=== PATIENT | female | born 1950 | race Caucasian/White ===

== ENCOUNTER 2021-09-02 12:58 | Outpatient (CLI) | payer MEDICARE, BC, SELFPAY ==
--- NOTE | ~2021-09-02 | MR_ITS ---
EXAMINATION: MR knee RT wo con DATE: 09/02/2021 14:27 INDICATION: Right knee pain TECHNIQUE: Magnetic resonance imaging (MRI) of the right knee was performed without intravenous contr ast. Sequences included coronal PD-weighted FSE, coronal PD-weighted FS FSE, sagittal T2-weighted FS E, sagittal PD-weighted FS FSE and axial PD weighted fat saturated FSE. COMPARISON: None. FINDINGS: Medial compartment: Longitudinal horizontal tear extending to the inferior articular surface at the posterior horn and po sterior body of the medial meniscus. Articular cartilage is normal. Lateral compartment: Lateral meniscus is normal. Articular cartilage is normal. Patellofemoral compartment: Partial-thickness chondral fissuring without degenerative subchondral changes at the medial patellar facet. Ligaments and tendons: Anterior and posterior cruciate ligaments are normal. The medial collateral ligament and fibular kostas ateral ligament complex are normal. Small enthesophyte at the patellar insertion of the quadriceps te ndon and at the anterior tibial tubercle insertion of the patellar tendon. The extensor mechanism is otherwise normal. The visualized medial and lateral hamstring tendons as well as the iliotibial band are normal. Fluid: Physiologic amount of fluid in the joint space. No loose osteochondral bodies identified. Small Medrano 's cyst. Osseous/other: Normal marrow signal. No fracture or pathologic marrow replacing process. IMPRESSION: 1. Longitudinal horizontal medial meniscal tear. 2. Partial-thickness chondral fissuring at the medial patellar facet. 3. Small Medrano's cyst. Reviewed, dictated and finalized at location A. ECT MANAGEMENT CONSULTANT
== END 2021-09-02 12:59 | disposition home or self-care (01) ==
LOC: ANHIMG 13:03
PROVIDERS: PCP Family Medicine; Visit Provider Orthopaedic Surgery
DX: M71.21 Synovial cyst of popliteal space [Baker], right knee (principal); S83.241A Other tear of medial meniscus, current injury, right knee, initial encounter; X58.XXXA Exposure to other specified factors, initial encounter
CPT/HCPCS: 73721

== ENCOUNTER 2021-10-26 07:34 | Outpatient (CLI) | payer MEDICARE, BC, SELFPAY ==
[2021-10-26 08:47] LABS: Anion Gap 10 mmol/L (8-16); Blood Urea Nitrogen 17 mg/dL (7-17); Calcium 9.2 mg/dL (8.4-10.2); Carbon Dioxide 25 mmol/L (22-30); Chloride 105 mmol/L (98-107); Estimated Glomerular Filt Rate > 60; Glucose 196 mg/dL (65-110); Potassium 4.4 mmol/L (3.4-5.0); Sodium 140 mmol/L (137-145)
--- NOTE | 2021-10-26 09:35 | ECG_ITS ---
Measurements Intervals [place] Rate: 71 P: 3 SC: 160 QRS: 50 QRSD: 80 T: 47 QT: 363 QTc: 396 Interpretive Statements SINUS RHYTHM LOW QRS VOLTAGE IN PRECORDIAL LEADS [QRS DEFLECTION < 1.0 mV IN CHEST LEADS] BORDERLINE ECG NO PREVIOUS ECG AVAILABLE FOR COMPARISON Electronically Signed On 10-26-2021 11:34:57 CDT by Ricardo Patel M.D.
== END 2021-10-26 07:35 | disposition home or self-care (01) ==
PROVIDERS: PCP Family Medicine; Visit Provider Orthopaedic Surgery
DX: Z01.818 Encounter for other preprocedural examination (principal); E11.9 Type 2 diabetes mellitus without complications; I10 Essential (primary) hypertension
CPT/HCPCS: 36415; 80048; 93005

== ENCOUNTER 2023-10-19 10:48 | Emergency (ER) | payer MEDICARE, BC, SELFPAY ==
--- NOTE | 2023-10-19 11:00 | ED.EAR ---
HPI - Ear Problem General Chief complaint: Ear Stated complaint: Right Ear Irritation Source: patient Mode of arrival: ambulatory Limitations: no limitations History of Present Illness HPI Narrative: 72-year-old female presented for complaint of right ear irritation for about 3 days. She endorses the ear feels ?full. ? She states she was attacked by a bee which subsequently was lodged into her ear canal. She was able to use vegetable oil and tweezers to extract the be the day of the incident. Since then she denies any itching or swelling redness or warmth to the ear. She denies decrease in hearing. She endorses history of tinnitus, worse on the left, and vertigo which is improving with treatment. MD Complaint: ear pain Related Data Home Medications Medication Instructions Recorded Confirmed blood sugar diagnostic (FreeStyle 10/19/23 10/19/23 Lite Strips) glimepiride 2 mg tablet 2 mg PO DAILY 10/19/23 10/19/23 losartan 25 mg tablet 25 mg PO DAILY 10/19/23 10/19/23 meclizine 12.5 mg tablet 12.5 mg PO PRN PRN Vertigo 10/19/23 10/19/23 metformin 750 mg tablet,extended 750 mg PO BID 10/19/23 10/19/23 release 24 hr rosuvastatin 5 mg tablet 5 mg PO DAILY 10/19/23 10/19/23 sitagliptin phosphate 100 mg 100 mg PO DAILY 10/19/23 10/19/23 tablet (Januvia) ursodiol 250 mg tablet 250 mg PO BID 10/19/23 10/19/23 Allergies Allergy/AdvReac Type Severity Reaction Status Date / Time No Known Allergies Allergy Verified 10/19/23 10:50 Review of Systems Review of Systems: CONSTITUTIONAL: Denies malaise, chills, or fever. EYES: Denies visual changes, redness, or discharge. ENT: Denies rhinorrhea, congestion, sinus pain, and sore throat. Reports ear irritation CARDIOVASCULAR: Denies chest pain, palpitations, or edema. RESPIRATORY: Denies cough or dyspnea. SKIN: Denies rash or itching. MUSCULOSKELETAL: Denies myalgia. NEUROLOGIC: Denies headache. All systems reviewed & are unremarkable except as noted in HPI and below PMFSH Past Medical History Medical History (Updated 10/19/23 @ 11:26 by Lissa Srinivasan, IMMIGRATION SERVICES OFFICER) Diabetes Vertigo Comments At time of signature, agree with nursing past medical, surgical, social and family history. There is no relevant family history pertinent to the presenting complaint Exam Narrative: GENERAL: Well-appearing EYES: PERRLA, conjunctivae clear ENT: Nares clear. Mucous membranes moist. TMs pearly helms with dull light reflex bilaterally; no tragal tenderness. Right canal with abrasion at 3o'clock position, no swelling or drainage, no FB. Oropharynx not erythematous without lesions. Tonsils not enlarged and without exudate, no drooling, no hoarseness, no trismus, uvula midline. NECK: Supple. No lymphadenopathy. Soft C-collar in place. CHEST: Clear to auscultation, breath sounds equal. HEART: Regular rate and rhythm. No murmur heard. SKIN: Warm, dry, no rash. NEURO: Alert and oriented x3. PSYCH: Normal mood and affect Course Course Emergency Course: Patient is aware of diagnosis, understands and agrees to treatment plan. Anticipatory guidance given. Patient agrees to follow-up as directed and is aware of reasons to seek care at the emergency department. Portions of this record may have been created with voice recognition software Level of Care: Express Care Visit Vital Signs Vital signs: Reviewed Medical Decision Making MDM Narrative Medical decision making narrative: Discussed physical exam findings consistent with abrasion to the right canal. Rx cipro gtts. Advised supportive measures and signs/symptoms to go to the ER. Patient is appropriate for outpatient treatment and follow-up. Differential Diagnosis Differential Diagnosis: Coronavirus, strep pharyngitis, allergic rhinitis, upper respiratory tract infection, sinusitis, rhinosinusitis, nasopharyngitis, viral pharyngitis, otitis media, otitis externa, eustachian tube dysfunction, foreign body, cerumen impaction. D
[2023-10-19 11:01] VITALS: BP 112/70; PULSE 85; RESP 18; TEMP 36.7; O2SAT 100
== END 2023-10-19 11:15 | disposition home or self-care (01) ==
PROVIDERS: Emergency Provider Nurse Practitioner Family; PCP Family Medicine
DX: S00.411A Abrasion of right ear, initial encounter (principal); X58.XXXA Exposure to other specified factors, initial encounter; E11.9 Type 2 diabetes mellitus without complications
CPT/HCPCS: 99213; G0463

== ENCOUNTER 2025-04-08 13:23 | Emergency (ER) | payer MEDICARE, BC, SELFPAY ==
--- OUTSIDE RECORDS SUMMARY | 2005-02-08 10:30 | XMS_ITS | Continuity of Care Document ---
Author Organization [facility] Address [address] [place] [address] Phone Care Team Providers Care File Clerk Data Entry Name Role Phone Starr OD, Ryan Unavailable Unavailable Advance Directives Directive Yes / No Effective Date File Name No Information Encounters Encounter Description Practice Location Reason(s) For Visit Diagnoses Date Provider Providers Copied on Encounter [facility], [address], [place], [place], [id number], [place] tel:[phone] [facility] No Information Aug-0 1-200 5 Starr OD Ryan. [address] , [address], [place], [address], [place]. tel:[phone] Referring Provider: Jennifer Lees MD, [address], [place], [address]. tel:[phone] Family History Family Member Type Diagnosis Age At Onset No Information Payers Payer name Insurance type Covered libertarian ID Authorclaytona tivirgilio(s) [facility] [id number] Social History Type Description Quantity Date Captured Comments Sex Female Smoking Status No Information Chief Complaint And Reason For Visit No Information Reason For Referral Reason For Referral No Information History Of Present Illness Encounter Date Complaint History Of Prese nt Illness No Information Functional Status Date Functional Assessmen t No Information Instructions Date Instruction Additional Infor mation No Information Assessments Type Assessment Date No Information Patient Care Teams Name Effective Dates (start - stop) Status Members No Information
--- NOTE | ~2025-04-08 | XR_ITS ---
EXAMINATION: XR chest 2V, 04/08/2025 13:49 CDT HISTORY: cough x 5 days, pneumonia exposure COMPARISON: No comparisons available. Technique: 2 views obtained. Findings: The lungs are clear, no effusion. No pneumothorax. Heart is normal size. Mediastinal and hilar contours are within normal limits. Bony thorax no acute abnormality. Impression: No acute cardiopulmonary abnormality. Reviewed, dictated and finalized at location P. Impression: No acute cardiopulmonary abnormality.
[2025-04-08 13:31] VITALS: BP 148/63; PULSE 81; RESP 16; TEMP 36.4; O2SAT 100
--- OUTSIDE RECORDS SUMMARY | 2025-04-08 13:48 | XMS_ITS | Encounter Summary ---
Author Organization [facility] Address [address] [place] [address] Care Team Providers Care Childhood Development Teacher Name Role Phone Eulalia Pereira MD Primary Care Provi ursula Horacio Luis MD Unavailable [phone] Encounter Details Date Type Department Care Team (Late st Contact Info) Description 03/15/2025 Results Follow-Up [facility] Family Medicine [address] [address] Eulalia Pereira MD [address] [address] CBC/Diff Ambiguous Default, Comprehensive metabolic panel, Albumin Creatinine Ratio, Urine, Additional followed-up results: 4 Social History Tobacco Use Types Packs/Day Years Used Date Smoking Tobacco: Never Smokeless Tobacco: Never Alcohol Use Standard Drinks/Week Comments Yes 1 (1 standard drink = 0.6 oz pur e alcohol) [facility] Utilities Answer Date Recorded In the past 12 months has [employer] electric, gas, oil, or water company threatened to shut off services in your home? No 12/07/2024 Social Connection and Isolation Panel Answer Date Recorded In a typical week, how many times do you talk on the phone with family, friends, or neighbors? More than three times a week 12/07/2024 How often do you get togethe r with friends or relatives? More than three times a week 12/07/2024 How often do you attend chur ch or presybeterian services? Never 12/07/2024 Do you belong to any clubs o r organizations such as congregation groups, unions, fraternal or athletic groups, or school groups? No 12/07/2024 How often do you attend meet ings of the clubs or organizations you belong to? Never 12/07/2024 Are you , , di vorced, , never , or living with a partner? 12/07/2024 AUDIT-C Answer Date Recorded Q1: How often do you have a drink containing alcohol? Never 01/29/2025 Q2: How many drinks containi ng alcohol do you have on a typical day when you are drinking? Patient does not drink Q3: How often do you have si x or more drinks on one occasion? Never 01/29/2025 Overall Financial Resource Strain (CARDIA) Answe r Date Recorded How hard is it for you to pa y for the very basics like food, housing, medical care, and heating? Not very hard 12/07/2024 PHQ-2 Answer Date Recorded PHQ-2 Total Score (If total score is 3 or more points, staff should administer the PHQ-9) 0 01/29/2025 Hunger Vital Sign Answer Date Recorded Within the past 12 months, y ou worried that your food would run out before you got the money to buy more. Never true 12/08/19 25 Within the past 12 months, t he food you bought just didn't last and you didn't have money to get more. Never true 12/07/2024 PRAPARE - Transportation Answer Date Re corded In the past 12 months, has l ack of transportation kept you from medical appointments or from getting medications? No 11/10 In the past 12 months, has l ack of transportation kept you from meetings, work, or from getting things needed for daily living? No 12/07/2024 PHQ-9 Answer Date Recorded PHQ-9 Total Score 2 01/29/2025 Housing Stability Vital Sign Answer Rui e Recorded In the last 12 months, was t here a time when you were not able to pay the mortgage or rent on time? No 12/07/2024 In the past 12 months, how m any times have you moved where you were living? 0 12/07/2024 At any time in the past 12 m [facility], were you homeless or living in a jail (including now)? No 12/07/2024 Personal Safety Answer Date Recorded Have you ever been in or are you currently in a harmful physical or emotional relationship or is someone making you feel afraid or unsafe? Denies 12/06/2024 Comments No Sex and Gender Information Value Date Recorded Sex Assigned at Not on file Legal Sex Female 12:35 AM ANTISQUEAK APPLIER Gender Identity Not on file Sexual Orientation Not on file documented as of this encounter Plan of Treatment Not on file documented as of this encounter Visit Diagnoses Not on filedocumented in this encounter Additional Health Concerns Infection Onset Date Last Indicated Resolved Time MDR gram neg/ESBL Comment:Patients who received care at a healthcare facility outside of the [place] will be placed in Contact Precautions until infection or colonization with specific highly resistant bacteria can be ruled out. Infection Prevention will arrange screening. Please contact Infection Prevention. 06/24/2022 06/24/2022 documented as of this encounter Care Teams Childhood Development Teacher Relationship Specialty Start Date End Date Eulalia Pereira MD [address] [place] [address] PCP - General Family Medicine 09/29/18 Horacio Luis MD [address] [place] [address] Consulting Physician General Surgery 12/07/24 documented as of this encounter
--- OUTSIDE RECORDS SUMMARY | 2025-04-08 13:48 | XMS_ITS | Clinical Summary ---
Author Organization [facility] Address [address] [place] [address] Care Team Providers Care Pipe Fitter Soft Copper Name Role Phone Unavailable Primary Care Provider Unavailabl e Immunizations Immunization Administration Dates Next Due MODERNA COVID-19 (12+) MRNA, LNP-S, PF, 100 MCG/ 0.5 ML DOSE 09/17/2020,08/20/2020 Social History Tobacco Use Types Packs/Day Years Used Date Smoking Tobacco: Never Assessed Comments Unknown Sex and Gender Information Value Date Recorded Sex Assigned at Not on file Legal Sex Female 7:32 PM CDT Gender Identity Not on file Sexual Orientation Not on file Plan of Treatment Health Maintenance Due Date Last Done Comments Colorectal Cancer Screening Colonoscopy (10 Years) 1952 Hepatitis C 1970 DTaP, Tdap and Td Vaccines ( 1 - Tdap) 11/23/1971 Mammogram Screening 1992 Annual Medicare Wellness Visit 2017 Dexa Scan (General) 2017 Pneumococcal Vaccine: 50+ Years (2 of 2 - PPSV23) 06/22/2020 06/22/2019, 05/10/2015 COVID-19 Vaccine (3 - 2024-2 6 season) 2025 09/17/2020, 08/20/2020 RSV Immunization or 60+ Years (1 - 1-dose 75+ series) 11/23/2027 Zoster Vaccines Completed 04/10/2020, 06/22/2019 Meningococcal B Vaccine Aged Out No l onger eligible based on patient's age to complete this topic Meningococcal Vaccine Aged Out No mirela elizabeth eligible based on patient's age to complete this topic RSV Immunizations Under 20 Months Aged Out No longer eligible b ased on patient's age to complete this topic Insurance MEDICARE [facility]
--- OUTSIDE RECORDS SUMMARY | 2025-04-08 13:48 | XMS_ITS | Clinical Summary ---
Author Organization [facility] Address [address] [place] [address] Care Team Providers Care Environmental Department Manager Name Role Phone Jennifer Lees MD Primary Care Provider [phone] Social History Tobacco Use Types Packs/Day Years Used Date Smoking Tobacco: Never Assessed Comments Unknown Sex and Gender Information Value Date Recorded Sex Assigned at Not on file Legal Sex Female 6:12 AM BLASTING CONTRACT MINER Gender Identity Not on file Sexual Orientation Not on file Plan of Treatment Health Maintenance Due Date Last Done Comments DTAP/TDAP/TD VACCINES (1 - Tdap) 11/23/1971 COLORECTAL SCREENING 1997 Colorectal Cancer Screening 1997 FIT-DNA Q 3 years 1997 FIT/FOBT Q 1 year 1997 Flex Sig/CT Colonography Q 5 years 1997 PNEUMOCOCCAL VACCINE 50+ YEARS (1 of 1 - PCV) 11/23/19 03 ZOSTER VACCINE (1 of 2) 2002 BREAST CANCER SCREENING 05/18/2013 05/18/2012 OSTEOPOROSIS SCREENING 2017 INFLUENZA VACCINE (#1) 2025 RSV VACCINE (60+ or ) (1 - 1-dose 75+ series) 11/23/2027 Procedures Procedure Name Priority Date/Time Associated Diagnosis Comments MAMMO SCREEN BILAT W OR WO CAD Routine 05/18/2012 1:58 PM BLASTING CONTRACT MINER Other screening mammogram from Last 3 Months or Most Recently Relevant to Health Maintenance Results * MAMMO DIGITAL SCREEN BILAT (05/18/2012 1:58 PM BLASTING CONTRACT MINER) Anatomical Region Laterality Modality Breast Bilateral Mammography 05/18/2012 1:57 PM BLASTING CONTRACT MINER Addenda Addendum by Francisco Anderson MD on 05/26/2012 12:23 PM BLASTING CONTRACT MINER ADDENDUM: Outside films made available for review dated February 2005 from [facility]. FINDINGS: The parenchymal pattern of the breasts is unchanged from the previous examination including the asymmetry within the superior aspect of the right breast on the MLO projection. No concerning developing masses, microcalcifications or focal areas of architectural distortion identified. Overall assessment: BI-RADS category 1: Negative RECOMMENDATIONS: Recommend continued annual mammography. Narrative 05/22/2012 7:13 AM BLASTING CONTRACT MINER BILATERAL DIGITAL SCREENING MAMMOGRAM WITH CAD , May 18, 2012 01:57:00 PM INDICATION: Routine screening. TECHNIQUE: Standard images were obtained of both breasts on a digital system. CAD was utilized. COMPARISON: None available. BREAST COMPOSITION: Scattered fibroglandular densities. FINDINGS: There is an asymmetry within the posterior/superior aspect of the right breast immediately anterior to the pectoralis muscle, likely representing normal glandular tissue. Comparisons will be obtained to assure stability of the parenchymal pattern. No concerning microcalcifications. The contralateral breast is unremarkable, with no dominant concerning masses identified. OVERALL ASSESSMENT: BI-RADS Category 0: Incomplete. Needs prior mammograms for comparison. RECOMMENDATIONS: Recommend obtain outside studies for comparison. An addendum will be dictated when these films become available. Procedure Note Francisco Anderson MD - 05/22/2012 BILATERAL DIGITAL SCREENING MAMMOGRAM WITH CAD , May 18, 2012 01:57:00 PM INDICATION: Routine screening. TECHNIQUE: Standard images were obtained of both breasts on a digital system. CAD was utilized. COMPARISON: None available. BREAST COMPOSITION: Scattered fibroglandular densities. FINDINGS: There is an asymmetry within the posterior/superior aspect of the right breast immediately anterior to the pectoralis muscle, likely representing normal glandular tissue. Comparisons will be obtained to assure stability of the parenchymal pattern. No concerning microcalcifications. The contralateral breast is unremarkable, with no dominant concerning masses identified. OVERALL ASSESSMENT: BI-RADS Category 0: Incomplete. Needs prior mammograms for comparison. RECOMMENDATIONS: Recommend obtain outside studies for comparison. An addendum will be dictated when these films become available. Jennifer Lees MD MAMMO ORDERABLES Edited Resu lt - Final from Last 3 Months or Most Recently Relevant to Health Maintenance Insurance [facility] [employer] Care Teams Environmental Department Manager Relationship Specialty Start Date End Date Jennifer Lees MD [address] [address] PCP - General 06/27/15
--- OUTSIDE RECORDS SUMMARY | 2025-04-08 13:48 | XMS_ITS | Encounter Summary ---
Author Organization [facility] Care Team Providers Care Skip Hoist Operator Name Role Phone Eulalia Pereira MD Primary Care Provi ursula Myra Roblero CDE Unavailable Horacio Luis MD Unavailable Jordyn Lewis LPN Unavailable [phone] Encounter Details Date Type Department Care Team (Latest Contact Info) Description 01/21/2017 Orders Only [facility] CLINCONV Provider, MD Amber [address] [place] [address] Social History Tobacco Use Types Packs/Day Years Used Date Smoking Tobacco: Never Alcohol Use Standard Drinks/Week Comments No 0 (1 standard drink = 0.6 oz pur e alcohol) Comments Unknown Sex and Gender Information Value Date Recorded Sex Assigned at Not on file Legal Sex Female 12:35 AM PRODUCTION CLERKS SUPERVISOR Gender Identity Not on file Sexual Orientation Not on file documented as of this encounter Plan of Treatment Not on file documented as of this encounter Procedures Procedure Name Priority Date/Time Associated Diagnosis Comments SCAN - LABS 01/21/2017 12:00 AM CDT documented in this encounter Results * SCAN - LABS (01/21/2017 12:00 AM CDT) Narrative 01/21/2017 12:00 AM CDT Ordered by an unspecified provider. us Historical Provider Final Res ult documented in this encounter Visit Diagnoses Not on filedocumented [...] screening. Please contact Infection Prevention. 06/24/2022 06/24/2022 COVID: Suspected 06/24/2022 06/24/2022 06/24/2022 11:52 AM PRODUCTION CLERKS SUPERVISOR COVID19 06/24/2022 06/24/2022 07/04/2022 3:05 AM PRODUCTION CLERKS SUPERVISOR COVID: Recovered Comment:Added based on recent COVID infection. 07/04/2022 07/28/2022 10/02/2022 3:05 AM C DT COVID: Suspected 09/15/2023 09/15/2023 09/15/2023 5:46 AM PRODUCTION CLERKS SUPERVISOR documented as of this encounter Care Teams Skip Hoist Operator Relationship Specialty Start Date End Date Eulalia Pereira MD [address] [place] [address] PCP - General Family Medicine 09/29/18 Myra Roblero CDE [address] [place] [address] [address] [place] [address] Data Analyst Etl Developer 01/24/23 08/10/23 Horacio Luis MD [address] [place] [id number] Consulting Physician General Surgery 12/07/24 Jordyn Lewis LPN [address] [place] [address] Early Childhood Assistant 12/10/24 12/10/24 documented as of this encounter
--- OUTSIDE RECORDS SUMMARY | 2025-04-08 13:48 | XMS_ITS | Encounter Summary ---
Author Organization [facility] Address [address] [place] [address] Care Team Providers Care Installer Helper Name Role Phone Eulalia Pereira MD Primary Care Provi ursula Horacio Luis MD Unavailable [phone] Reason for Visit * Reason Onset Date Comments Referral Request 03/22/2025 Encounter Details Date Type Department Care Team (Late st Contact Info) Description 03/22/2025 Telephone [facility] Family Medicine [address] [address] Eulalia Pereira MD [address] [place] [address] Referral Request Social History Tobacco Use Types Packs/Day Years Used Date Smoking Tobacco: Never Smokeless Tobacco: Never Alcohol Use Standard Drinks/Week Comments Yes 1 (1 standard drink = 0.6 oz pur e alcohol) [facility] Utilities Answer Date Recorded In the past 12 months has [employer] electric, gas, oil, or water company threatened [...] often do you attend chur ch or cheondoism services? Never 12/07/2024 Do you belong to any clubs o r organizations such as gnosticism groups, unions, fraternal or athletic groups, or [...] any time in the past 12 m onths, were you homeless or living in a skilled nursing (including now)? No 12/07/2024 Personal Safety Answer Date Recorded Have you ever been in or are you currently in a harmful physical or emotional relationship or is someone making you feel afraid or unsafe? Denies 12/06/2024 Comments No Sex and Gender Information Value Date Recorded Sex Assigned at Not on file Legal Sex Female 12:35 AM FEED MIXER Gender Identity Not on file Sexual Orientation Not on file documented as of this encounter Miscellaneous Notes * Telephone Encounter - Chely Rodriguez - 03/25/2025 8:56 AM CDT Records were faxed from a previous message * Telephone Encounter - Tala Mathews - 03/22/2025 3:38 PM CDT Referral Provider Name: TEJAS ADAMES Specialty: Endocrinology Address: [address] [place] [address] [address] [place] [address], Zip: [place] [address] Diagnosis Code/Symptom/Reason Patient is being seen: Multinodular goiter (E04.2) Date of Appointment: none NPI#: [id number] Tax ID#: [id number] Is insurance in chart up to date? Yes-Medicare Additional Comments: none Does message need to be routed? Yes-Action Needed documented in this encounter Plan of Treatment Not on [...] documented as of this encounter Care Teams Installer Helper Relationship Specialty Start Date End Date Eulalia Pereira MD [address] [place] [address] PCP - General Family Medicine 09/29/18 Horacio Luis MD [address] [place] [address] Consulting Physician General Surgery 12/07/24 documented as of this encounter
--- OUTSIDE RECORDS SUMMARY | 2025-04-08 13:48 | XMS_ITS | Clinical Summary ---
Author Organization [address] Address [address] [place] [id number] Care Team Providers Care Director Of Curriculum And Instruction Name Role Phone Eulalia Pereira MD Primary Care Provi ursula Horacio Luis MD Unavailable Allergies Active Allergy Reactions Criticality Noted Date Comments Tray Inhibitors Cough,Dizziness Low 07/23/2020 Medications ursodioL (MERT) 250 mg tablet Take 1 tablet (250 mg total) by mouth 2 (two) times a day 3 Active meclizine (ANTIVERT) 12.5 mg tabletIndicatio ns:Vertigo TAKE 1 TABLET(12.5 MG) BY MOUTH THREE TIMES DAILY NEEDED FOR DIZZINESS 90 tablet 4 Active FreeStyle Lite Strips stripIndication s:Type 2 diabetes mellitus with hyperglycemia, without long-term current use of insulin ([facility]) CHECK BLOOD SUGARS 1-2 TIMES DAILY 100 strip 1 4 Active metFORMIN XR (GLUCOPHAGE XR) 750 mg 24 hr tabletIndicatio ns:Type 2 diabetes mellitus with hyperglycemia, without long-term current use of insulin ([facility]) TAKE 1 TABLET(750 MG) BY MOUTH TWICE DAILY 180 tablet 3 5 Active glimepiride (AMARYL) 2 mg tabletIndicatio ns:Type 2 diabetes mellitus with hyperglycemia, without long-term current use of insulin ([facility]) TAKE 1 TABLET(2 MG) BY MOUTH DAILY BEFORE BREAKFAST 90 tablet 1 5 Active cholecalciferol 25 mcg (1,000 unit) tablet Take 1 tablet (1,000 Units total) by mouth daily Active losartan (COZAAR) 25 mg tabletIndicatio ns:Type 2 diabetes mellitus with hyperglycemia, without long-term current use of insulin (HCC) Take 1 tablet (25 mg total) by mouth daily 90 tablet 3 5 Active rosuvastatin (CRESTOR) 5 mg tabletIndicatio ns:Type 2 diabetes mellitus with complication, without long-term current use of insulin (HCC) TAKE 1 TABLET(5 MG) BY MOUTH DAILY 90 tablet 1 5 Active Januvia 100 mg tabletIndicatio ns:Type 2 diabetes mellitus with complication, without long-term current use of insulin (HCC) TAKE 1 TABLET(100 MG) BY MOUTH DAILY 90 tablet 1 5 Active Active Problems Problem Noted Date Diagnosed Date Chronic kidney disease, stage 2 (mild) 5 Assessment & Plan (01/29/2025 9:56 AM CDT): Chronic, stable Continue current regimen Perforation of sigmoid colon due to diverticulit is 12/06/2024 Assessment & Plan (01/17/2025 2:07 PM CDT): Needs to f/u with local GI provider. If she is unable to see anyone locally, I will place referral for her to be seen here. Diarrhea 12/01/2023 Assessment & Plan (12/14/2023 9:19 AM CDT): Chronic, stable Notes reviewed from GI- we discussed treatment for IBS-D- declined for now Continue to follow with GI Assessment & Plan (12/01/2023 12:01 PM CDT): Patient has had complaints of diarrhea for at least one year. Recommend she discuss with local GI or I can refer her here. She states she has had entire workup done that was negative. She may benefit from anti-anxiety medication as she is anxious which may be contributing to possible IBS-D. Can take imodium PRN. Thyroid nodule 09/19/2023 Overview (09/20/2023): CTA chest 09/15/23: 1.7 cm thyroid nodule, ultrasound ordered. Assessment & Plan (12/14/2023 9:22 AM CDT): Chronic, stable S/p biopsy Continue to check yearly Assessment & Plan (09/20/2023 3:01 PM CDT): Per CTA chest 09/15/23: 1.7 cm thyroid nodule recommending ultrasound for further evaluation. Last TSH normal on 08/29/23. Vertigo 09/14/2023 Assessment & Plan (12/14/2023 9:25 AM CDT): Recurrent, improved Continue to monitor her symptoms Assessment & Plan (09/20/2023 3:00 PM CDT): Chronic. Continue to follow with ENT. Primary biliary cholangitis 05/31/2023 Assessment & Plan (01/17/2025 2:05 PM CDT): Patient with PBC: history of elevated alk phos and +AMA. She has normal labs on urosdiol. Due to diarrhea, she is taking 1 tablet daily followed by 2 tablets daily (alternating). She can continue current regimen. However, if labs become elevated then she will need to increase her dose. She will undergo FibroScan today to confirm she does not have any worsening fibrosis and steatosis. She is of normal weight. She will get updated labs in Mar/Apr. Plan to also check TSH and CBC. She will be due for DEXA in 2025. We discussed the damage to the microscopic bile ducts, likely related to an autoimmune attack. This can lead to cirrhosis over the course of 15-25 years. We discussed symptoms and findings often associated with the disease, including, but not limited to, itching, dry eyes/mouth, high cholesterol levels, and vitamin deficiencies. We discussed the use of bile acids to control the disease. Ursodeoxycholic acid can improve liver tests. However, failure to improve may lead to the addition of another bile acid, obeticholic acid. I will monitor her liver tests on a regular basis. She will return to clinic in 1 year Assessment & Plan (12/14/2023 9:21 AM CDT): Chronic, stable Managed by GI Continue urodisol Assessment & Plan (12/01/2023 12:00 PM CDT): Patient with PBC: history of elevated alk phos and +AMA. She was started on ursodiol 250 mg twice daily by her local GI provider with normalization of alk phos. However, patient has only been taking ursodiol once daily. Instructed her to increase to 3 times daily as she is not receiving enough based on weight. She will increase to twice daily and if tolerating well, will then increase ursodiol to 3 times daily. Her most recent liver labs are normal and last FibroScan was normal. I will repeat labs with HFP, CBC, vitamin D, INR in 2-3 months. She is requesting to have ABO checked as she is going to [facility]. Placed orders. Her last DEXA was 11/04/22 that showed osteopenia, will repeat in 2-3 years. We discussed the damage to the microscopic bile ducts, likely related to an autoimmune attack. This can lead to cirrhosis over the course of 15-25 years. We discussed symptoms and findings often associated with the disease, including, but not limited to, itching, dry eyes/mouth, high cholesterol levels, and vitamin deficiencies. We discussed the use of bile acids to control the disease. Ursodeoxycholic acid can improve liver tests. However, failure to improve may lead to the addition of another bile acid, obeticholic acid. I will monitor her liver tests on a regular basis. She will return to clinic in 6 months. Assessment & Plan (05/31/2023 10:41 AM PACK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): Patient with PBC: elevated alk phos and +AMA. She was started on ursodiol 250 mg twice daily by her local GI provider with normalization of alk phos. Discussed the importance of continuing with ursodiol. Will obtain updated HFP today. Patient would like to have AMA drawn again, added to labs. Last DEXA was this year, will obtain updated TSH as well. Lastly, will get FIbroScan to evaluate if she has any hepatic fibrosis. Patient does report some pruritus but it is not bothersome, no medical intervention is needed at this time. If it worsens, she is to let me know. We discussed the damage to the microscopic bile ducts, likely related to an autoimmune attack. This can lead to cirrhosis over the course of 15-25 years. We discussed symptoms and findings often associated with the disease, including, but not limited to, itching, dry eyes/mouth, high cholesterol levels, and vitamin deficiencies. We discussed the use of bile acids to control the disease. Ursodeoxycholic acid can improve liver tests. However, failure to improve may lead to the addition of another bile acid, obeticholic acid. I will monitor her liver tests on a regular basis. She will return to clinic in 6 months. Bloating 05/31/2023 Assessment & Plan (12/14/2023 9:19 AM CDT): Chronic, stable Continue to follow with GI Assessment & Plan (05/31/2023 10:44 AM PACK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): Patient continues to have bloating, flatulence and diarrhea. She is currently being managed by her local GI and should continue to follow-up accordingly. If she wants a second opinion, can get her established with general GI here at [facility]. Low bone mass 11/18/2022 Assessment & Plan (12/14/2023 9:21 AM CDT): Chronic, stable Continue healthy lifestyle changes Assessment & Plan (11/18/2022 11:02 AM CDT): Chronic, stable Continue calcium rich diet, vitamin d Encouraged healthy activity Hepatic steatosis 11/18/2022 Assessment & Plan (01/17/2025 2:07 PM CDT): Hepatic steatosis noted on imaging with history of HLD and T2DM. She is of normal weight. I will obtain updated FibroScan today and labs. Assessment & Plan (12/14/2023 9:21 AM CDT): Chronic, stable Continue healthy changes Assessment & Plan (07/15/2023 9:26 AM PACK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): Chronic, stable/improved Managed by GI Continue current regimen Assessment & Plan (05/31/2023 10:43 AM PACK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): Patient with elevated liver enzymes, hepatic steatosis noted on imaging with history of HLD and T2DM. She is of normal weight. I will obtain FibroScan to evaluate degree of hepatic steatosis and if any fibrosis is present. She recently started a low carb diet. She does not have weight to lose at this time. I will discuss with Dr. Spring to see if she needs any other testing given she may have skinny MASH/MASLD. Assessment & Plan (11/18/2022 11:01 AM CDT): Chronic Continue healthy changes Call for questions Tinnitus of both ears 10/27/2022 Assessment & Plan (12/14/2023 9:22 AM CDT): Chronic, persistent Encouraged follow up with audiology, ent Update me with changes Assessment & Plan (11/18/2022 11:02 AM CDT): Chronic, stable Continue to audiology Sensorineural hearing loss (SNHL) of both ears 0 10/27/2022 Assessment & Plan (12/14/2023 9:22 AM CDT): Chronic, stable Continue to monitor Assessment & Plan (11/18/2022 11:02 AM CDT): Chronic, stable Continue to follow with audiology Encounter for Medicare annual wellness exam 03/2021 Overview (01/29/2025): Encouraged healthy diet and activity She has a POA Health Maintenance: Last mammogram: 09/03-benign, do follow-up. Study ordered Last DEXA: 04/21/2020, 09/30-low bone mass. Study ordered Last cologuard: 02/2023- repeat in 5 years Last Tdap: up to date Last pneumonia:up to date Last Shingrix: up to date Last Flu: up to date Last COVID: up to date Assessment & Plan (01/29/2025 11:06 AM CDT): Encouraged healthy diet and activity She has a POA Health Maintenance: Last mammogram: 09/03-benign, do follow-up. Study ordered Last DEXA: 04/21/2020, 09/30-low bone mass. Study ordered Last cologuard: 02/2023- repeat in 5 years Last Tdap: up to date Last pneumonia:up to date Last Shingrix: up to date Last Flu: up to date Last COVID: up to date Assessment & Plan (12/14/2023 9:18 AM CDT): Encouraged healthy diet and activity She has a POA Health Maintenance: Last mammogram: 04/21/2020, 08/02, 08/24-WNL Last DEXA: 04/21/2020, 09/30-low bone mass Last cologuard: 09/01/20-recently had a colonoscopy Last Tdap: up to date Last pneumonia:up to date Last Shingrix: up to date Last Flu: up to date Last COVID: up to date Assessment & Plan (11/18/2022 10:48 AM CDT): Encouraged healthy diet and activity She is working on getting a living will/POA Health Maintenance: Last mammogram: 04/21/2020, 08/02-WNL Last DEXA: 04/21/2020, 09/30-low bone mass Last cologuard: 09/01/20 Last Tdap: up to date Last pneumonia:reviewed Last Shingrix: up to date Last Flu: up to date Last COVID: encouraged Assessment & Plan (02/16/2021 10:44 AM CDT): Encouraged healthy diet and activity Please look into a power of estate attorney or living will-forms given Wear sun screen, seat belts Health Maintenance: Last mammogram: 04/21/2020-WNL Last DEXA: 04/21/2020-low bone mass Last cologuard: 09/01/20 Last Tdap: reviewed Last pneumonia/Prevnar:reviewed Last Shingrix: up to date Last Flu: up to date Last COVID: encouraged Gallbladder polyp 05/31/2019 Assessment & Plan (01/17/2025 2:06 PM CDT): Prior findings of gallbladder polyp. US from 1 year showed it was not present. Will repeat US at her convenience. If gallbladder polyp remains not detected, then no further imaging is needed for monitoring. Assessment & Plan (12/14/2023 9:20 AM CDT): Chronic, stable Follow up ultrasound ordered Assessment & Plan (11/18/2022 11:01 AM CDT): Was not seen on last evam Consider recheck in 6 months Will request notes from dr yuan Assessment & Plan (10/19/2022 9:20 AM CDT): Chronic With elevated LFT's Will order follow up us Assessment & Plan (01/31/2020 9:38 AM CDT): Set up ultrasound Assessment & Plan (05/31/2019 8:24 AM PACK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): Recheck ultrasound in 6 months Call for questions or concerns Hyperlipidemia associated with type 2 diabetes anya echeverria 10/23/2018 Assessment & Plan (12/14/2023 9:19 AM CDT): Chronic, stable Continue crestor Continue diabetes treatment Assessment & Plan (11/18/2022 11:01 AM CDT): Chronic, stable Continue crestor Continue healthy changes Assessment & Plan (02/16/2021 10:48 AM CDT): LDL below 100 on crestor Continue current regimen Assessment & Plan (10/09/2020 7:29 AM CDT): LDL near goal Continue current regimen Continue to work on healthy lifestyle changes Assessment & Plan (07/23/2020 10:13 AM PACK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): LDL at goal Continue current regimen Assessment & Plan (01/31/2020 8:28 AM CDT): LDL at goal Continue current regimen Assessment & Plan (05/31/2019 8:13 AM PACK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): Labs ordered by cardiology, but unfortunately not drawn by the lab Will review once we get the results Call for questions or concerns Assessment & Plan (02/12/2019 1:07 PM CDT): Reviewed risks of uncontrolled high cholesterol including heart attack, stroke Pt verbalized the risk, and declined treatment Encouraged to consider it to decrease her risk Assessment & Plan (10/23/2018 1:11 PM CDT): Lipid abnormalities are worsening. Nutritional counseling was provided. Lipids will be reassessed in 6 months. Reviewed the risk of heart attack and stroke Will work on healthy changes, and recheck in the future Type 2 diabetes mellitus wit h hyperglycemia, without long-term current use of insulin 07/12/2018 Assessment & Plan (12/14/2023 9:25 AM CDT): Chronic, worse on last check Per patient, her sugars are also running high We discussed amaryl, and increased it to 4 mg- declined for now Will recheck labs She has not had her eye exam- referral placed Foot exam completed today Continue metformin, januvia, losartan, and glimperide Further guidance after next labs. If still elevated, consider medication adjustment Assessment & Plan (07/15/2023 9:13 AM PACK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): Chronic, significantly improved Continue glimepiride, Januvia, metformin Continue healthy lifestyle changes Lab recheck in three months Call for questions or concerns Assessment & Plan (12/15/2022 8:41 AM CDT): Chronic, worse She is concerned that she has had a gallbladder problem in the past, family history of thyroid cancer She has recurrent UTI, yeast infections She declined any injections Will place referral to Endo Will refill her strips Will have her take her medication as prescribed for a week Check blood sugars daily Update me in 1 week with her sugars Let me know when she is able to see endo Call for questions or concerns Assessment & Plan (11/18/2022 11:03 AM CDT): Chronic, hopefully improving Labs ordered Referral to optometry placed Continue healthy changes Call for questions Assessment & Plan (10/19/2022 9:17 AM CDT): Chronic, worse Continue metformin TID Will increase amaryl to 2 mg daily Will refer to diabetes education Will refer for diabetes eye exam Update me in 1 month with her sugars Consider referral to endo Update me with any changes Assessment & Plan (02/16/2021 10:48 AM CDT): Will check A1C Continue current regimen Continue healthy changes Call for questions or concerns Assessment & Plan (10/09/2020 7:29 AM CDT): Improved! Continue current regimen for now Continue to work on healthy lifestyle changes Recheck labs in 3 months Call for questions or concerns Assessment & Plan (07/23/2020 10:12 AM PACK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): Significantly higher, with increased life stressors She started working on healthy changes Continue current dose of metformin Continue januvia Add glimeperide 1 mg daily Update me in 1 month with her sugars Will start losartan 25 mg daily Continue to monitor Assessment & Plan (01/31/2020 8:28 AM CDT): Currently not well controlled Declined adjusting her regimen Will add lisinopril 2.5 mg daily for kidney protection-reviewed the risks/benefits/side effects of medication Set up eye exam Check sugars at least 1-2 times daily Recheck labs in 4 weeks Call for questions or concners Assessment & Plan (05/31/2019 8:09 AM PACK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): Improved! Continue current regimen Watch for any lows- if they happen often-we will need to adjust your regimen Set up eye exam Follow up in 6 months Call for questions or concerns Assessment & Plan (02/12/2019 10:40 AM CDT): Higher than it has been Will increase her januvia to 100 mg daily Continue to work on healthy changes Update me in 1 month with sugars Call for questions or concerns Assessment & Plan (10/23/2018 1:09 PM CDT): Discussed labs; /Diabetes Treatment Recommendations A1c 7.8 % on 10/05/18 Diabetic eye exam in the last month Urine for microalbumin normal 10/05/18 BP at goal Lipids not at goal,declined Patient on TRAY inhibitor or ARB:No, declined Monofilament foot exam:normal Immunizations: believes it is up to date Smoking status:Non-smoker Continue on current medications Encouraged healthy, low carbohydrate diet and exercise Resolved Problems Problem Noted Date Diagnosed Date Resolved Date Elevated liver enzymes 12/04/201512/13 Assessment & Plan (07/15/2023 9:13 AM PACK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): Chronic, improved with treatment Managed by hepatology Continue her current regimen Update me with any changes or concerns Assessment & Plan (11/18/2022 11:00 AM CDT): Chronic, stable Continue to monitor Will request Dr Yuan's notes Assessment & Plan (10/19/2022 9:20 AM CDT): Chronic, persistent Recheck labs in 1 month Assessment & Plan (02/16/2021 10:47 AM CDT): Will recheck LFT's Assessment & Plan (07/23/2020 10:13 AM PACK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): Recheck in 3-6 months Assessment & Plan (05/31/2019 8:23 AM PACK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): Pending We will contact you with the results Call for questions or concerns Assessment & Plan (02/12/2019 10:38 AM CDT): Liver function worse Will check ultrasound Will refer to GI Update me after the visit Assessment & Plan (10/23/2018 1:11 PM CDT): Slightly elevated Recheck in 3 months Encounters Date Type Department Care Team Description 03/22/2025 Telephone [facility] Family Medicine [address] [phone] Eulalia Pereira MD Referral Request 03/22/2025 Letter (Out) [address] [phone] 03/22/[address] [phone] Eulalia Pereira MD Medical Question/Miscellaneous 03/20/2025 Telephone [facility] [address] [facility] [address] [place] [address] [place] [address] Alisha Alcantar Labs due April to 03/15/2025 Results Follow-Up [address] [phone] Eulalia Pereira MD CBC/Diff Ambiguous Default, Comprehensive metabolic panel, Albumin Creatinine Ratio, Urine, Additional followed-up results: 4 03/14/2025 Orders Only [address] [phone] Eulalia Pereira MD 03/07/2025 8:00 AM CDT - 03/07/2025 11:59 PM CDT Hospital Encounter [facility] Ultrasound [address] [place] [id number] Thyroid nodule Discharge Disposition: Discharge to home or self care 03/07/2025 8:00 AM CDT - 03/07/2025 11:59 PM CDT Hospital Encounter [facility] Ultrasound [address] [place] [phone] Gallbladder polyp Discharge Disposition: Discharge to home or self care 01/31/[address] [phone] Eulalia Pereira MD Medical Question/Miscellaneous 01/30/[address] [phone] Eulalia Pereira MD 01/30/2025 Results Follow-Up [facility] [address] [phone] Eulalia Pereira MD CBC with auto differential, Urinalysis reflex to microscopic and culture Urine, clean voided, Albumin Creatinine Ratio, Urine, Additional followed-up results: 6 01/29/2025 1:00 PM CDT Lab [facility] [address] [place] [id number] Abdominal discomfort in left lower quadrant; Type 2 diabetes mellitus with hyperglycemia, without long-term current use of insulin (HCC) 01/29/2025 12:08 PM CDT - 01/29/2025 11:59 PM CDT Hospital Encounter [facility] [address] [place] [id number] Abdominal discomfort in left lower quadrant Discharge Disposition: Discharge to home or self care 01/29/2025 10:45 AM CDT Office Visit [facility] [address] [phone] Eulalia Pereira MD Encounter for Medicare annual wellness exam (Primary Dx); Abdominal discomfort in left lower quadrant; Iron deficiency anemia, unspecified iron deficiency anemia type; Chronic kidney disease, stage 2 (mild); Gallbladder polyp; Thyroid nodule; Primary biliary cholangitis (HCC); Sensorineural hearing loss (SNHL) of both ears; Hepatic steatosis; Hyperlipidemia associated with type 2 diabetes mellitus (HCC); Low bone mass; Tinnitus of both ears; Perforation of sigmoid colon due to diverticulitis; Type 2 diabetes mellitus with hyperglycemia, without long-term current use of insulin (HCC) 01/17/2025 5:20 PM CDT Lab [facility] [address] [place] [phone] Primary biliary cholangitis (HCC); Abnormal findings on diagnostic imaging of other specified body structures 01/17/2025 2:00 PM CDT Procedure visit [facility] Gastroenterology [address] [facility] [address] [address] [place] [address] [place] [address] Primary biliary cholangitis (HCC) 01/17/2025 1:40 PM CDT Office Visit [facility] Gastroenterology [address] [facility] [address] [place] [address] [place] [address] Ashley Greene NP Gallbladder polyp (Primary Dx); Primary biliary cholangitis (HCC); Abnormal findings on diagnostic imaging of other specified body structures; Hepatic steatosis; Perforation of sigmoid colon due to diverticulitis 01/17/2025 Results Follow-Up [facility] [address] [facility] [address] [place] [address] [place] [address] Ashley Greene, [place] Liver Elastography w/o Imaging [facility] (All Locations), CBC with auto differential, TSH, Additional followed-up results: 2 from Last 3 Months Immunizations Immunization Administration Dates Next Due Hep A, Adult 07/30/2019 IPV 07/30/2019 Influenza, Quad, Adjuvantate d, Intramuscular 06/10/2021 Influenza, Quadrivalent, Hig h Dose, Preservative Free, Intrr 04/07/2022,04/10/2020 Influenza, Trivalent, High D ose, Split, Preservative Free, Intramuscular 04/03/2024,05/31/2019 Influenza, Trivalent, IM (MDV) 07/31/2013 Influenza, Trivalent, Preser vative Free, Intramuscular 05/10/2015 Influenza, Unspecified 04/03/2024(Deferr ed: Patient Refused),05/13/2023,05/31/2019 MMR 07/30/2019 Pneumococcal Conjugate PCV 13 06/22/2019, 015 Pneumococcal Conjugate Pcv20 11/18/2022 RSV Vaccine, Pref, Recombina nt, Subunit, Adjuvanted, PF, IM (Arexvy) 05/13/2023 Sars-cov-2 Covid-19 Mrna, Bi valent, Original/omicron Ba.1, A 05/13/2023 Tdap 07/30/2019 Typhoid Inactivated 08/17/2019 ZOSTER Recombinant 04/10/2020,06/22/2019 Surgical History Surgery Date Site/Laterality Comments OOPHERECTOMY MENISCUS SURGERY 07/11/2021 - 07/10/2022 Right right knee COLONOSCOPY 02/08/2023 - 03/10/2023 Medical History Medical History Date Comments Type 2 diabetes mellitus Diabete s type 2; Comments: [facility] 02/19/2016 - Hx Other Medical hyperlipidemia; Comments: [facility] 02/19/2016 - Hx Other Medical ovary cyst guero jabier; Comments: [facility] 02/19/2016 - Hx Other Medical high enzymes; C omments: [facility] 02/19/2016 - Hyperlipidemia Dizziness Tinnitus Ear problems Diverticulosis Diverticulitis Family History Medical History Relation Name Comments COPD Brother 1 Brayan Wesley Diabetes Brother 1 Brayan Wesley Diabetes Brother 2 Phillip Wesley Other Father Phillip Wesley possible staff infection; Cause of : possible staff infection Throat cancer Father Phillip Wesley Cancer, throat ; Vision loss Father Phillip Wesley Coronary artery disease Mother Tere Wesley Coronary artery disease; Cause of : Coronary artery disease Heart disease Mother Tere Wesley Aortic aneurysm Other 2 Family histo ry of Abdominal aortic aneurysm; Cause of : Family history of Abdominal aortic aneurysm Lung cancer Sister 3 metastatic to b one and brain Cancer Sister 4 Genny Hilliard Relation Name Status Comments Brother 1 Brayan Wesley Brother 2 Phillip Wesley Father Phillip Wesley Mother Tere Wesley Other 1 Other 2 Sister 1 Sister 2 Sister 3 Sister 4 Genny Hilliard Social History Tobacco Use Types Packs/Day Years Used Date Smoking Tobacco: Never Smokeless Tobacco: Never Tobacco Cessation:Counseling Given: Not Answered Alcohol Use Standard Drinks/Week Comments Yes 1 (1 standard drink = 0.6 oz pur e alcohol) [facility] Utilities Answer Date Recorded In the past 12 months has [employer], gas, oil, or water Jodange threatened to shut off services in your [...] often do you attend chur ch or catholic services? Never 12/07/2024 Do you belong to any clubs o r organizations such as judaism groups, unions, fraternal or athletic groups, or [...] any time in the past 12 m [facility], were you homeless or living in a retirement (including now)? No 12/07/2024 Personal Safety Answer Date Recorded Have you ever been in or are you currently in a harmful physical or emotional relationship or is someone making you feel afraid or unsafe? 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 Gender Identity Not on file Sexual Orientation Not on file Obstetrics History Para Term AB IAB SAB Ectopic Multiple Livin g Live Births 2 2 2 Date Outcome GA Total Labor Labor/2nd/3rd Weight Sex Type Anes PTL Ashley A1 A5 Name Clin Term Term Last Filed Vital Signs Vital Sign Reading Time Taken Comments Blood Pressure 106/52 01/29/2025 10:57 AM CDT Pulse 83 01/29/2025 10:57 AM CDT Temperature 36.7 C (98.1 F) 01/29/2025 10:57 AM CDT Respiratory Rate 14 01/29/2025 10:57 AM CDT Oxygen Saturation 99% 01/29/2025 10:57 AM CDT Inhaled Oxygen Concentration - - Weight 51.1 kg (112 lb 9.6 oz) 01/29/2025 10:57 AM CDT Height 175.3 cm (5' 9) 01/29/2025 10:57 AM CDT Body Mass Index 16.63 01/29/2025 10:57 AM CDT Plan of Treatment Health Maintenance Due Date Last Done Comments Hepatitis B Screening 1968 Dilated Eye Exam 05/01/2022 05/01/2021, , 05/01/2021, Additional history exists Breast Cancer Screening-Mammogram 08/24/2024 08/24/2023, 07/28/2022, 04/21/2020, Additional history exists Osteoporosis Screening-Bone Density Scan 11/04/2024 11/04/2022, 04/21/2020 Covid-19 Vaccine (7 2023- 5 season) 2025 08/26/2024, 05/13/2023, 01/28/2022, Additional history exists Influenza Vaccine (#1) 2025 , 05/13/2023, 04/07/2022, Additional history exists Lipid Panel 08/28/2025 08/28/2024, 05/11, 12/08/2022, Additional history exists Hemoglobin A1C 09/11/2025 03/14/2025, 01/09, 08/10/2024, Additional history exists Depression Screening 01/29/2026 01/29/2025, 01/29/2025, 12/19/2024, Additional history exists Fall Risk Assessment 01/29/2026 01/29/2025, 12/07/2024, 12/14/2023, Additional history exists Foot Exam 01/29/2026 01/29/2025, 12/09, 12/14/2023, Additional history exists Well Visit 65+ 01/29/2026 01/29/2025, 11/2023, 11/18/2022, Additional history exists Albumin Creatinine Ratio, Urine 03/14/2026 03/14/2025, 01/29/2025, 08/29/2023, Additional history exists eGFR 03/14/2026 03/14/2025, 01/09, 12/07/2024, Additional history exists DTaP/Tdap/Td Vaccine (2 - Td or Tdap) 07/30/2029 07/30/2019 Colon Cancer Screening-Colonoscopy 02/25/2033 02/25/2023, 10/25/2011 Zoster Vaccine Completed 04/10/2020, 06/22/2019 Pneumococcal vaccine 65+ Completed 023, 06/22/2019, 05/10/2015 Colon Cancer Screening-CT Colonography Discontinued 02/25/2023, 10/25/2011 Colon Cancer Screening-DNA Stool Discontinued 02/25/2023, 09/01/2020, 10/25/2011 Colon Cancer Screening-FIT Discontinued 02/25, 09/01/2020, 10/25/2011 Colon Cancer Screening-Sigmoidoscopy Discontinued 02/25/2023, 10/25/2011 Hepatitis C Screening Completed 03/14/2025, 020 Procedures Procedure Name Priority Date/Time Associated Diagnosis Comments SPECIMEN STATUS REPORT Routine 03/14/2025 9:24 AM CDT HEMOGLOBIN A1C Routine 03/14/2025 9:24 AM CDT ALBUMIN CREATININE RATIO, URINE Routine 03/14/2025 9:24 AM CDT COMPREHENSIVE METABOLIC PANEL Routine 03/14/2025 9:24 AM CDT CBC/DIFF AMBIGUOUS DEFAULT Routine 03/14/2025 9:24 AM CDT HEPATITIS C ANTIBODY Routine 03/14/2025 9:24 AM CDT HEPATITIS B SURFACE ANTIBODY (IMMUNE STATUS) Routine 03/14/2025 9:24 AM CDT US THYROID Schedule Routine, Read Routine (OP Routine) 03/07/2025 8:41 AM CDT Thyroid nodule US RUQ Routine 03/07/2025 8:40 AM CDT Gallbladder polyp EGFR Routine 01/29/2025 12:48 PM CDT Type 2 diabetes mellitus with hyperglycemia, without long-term current use of insulin (HCC) DIFFERENTIAL AUTO Routine 01/29/2025 12: 48 PM CDT Abdominal discomfort in left lower quadrant COMPREHENSIVE METABOLIC PANEL Routine 01/29/2025 12:48 PM CDT Type 2 diabetes mellitus with hyperglycemia, without long-term current use of insulin (HCC) HEMOGLOBIN A1C Routine 01/29/2025 12:48 PM CDT Type 2 diabetes mellitus with hyperglycemia, without long-term current use of insulin (HCC) ALBUMIN CREATININE RATIO, URINE Routine 01/29/2025 12:48 PM CDT Type 2 diabetes mellitus with hyperglycemia, without long-term current use of insulin (HCC) CBC WITH AUTO DIFFERENTIAL Routine 01/29/2025 12:48 PM CDT Abdominal discomfort in left lower quadrant URINALYSIS AND REFLEX TO MICROSCOPIC AND CULTURE Routine 01/29/2025 12:48 PM CDT Abdominal discomfort in left lower quadrant CT ABDOMEN PELVIS W CONTRAST Schedule TASHIA, Read TASHIA (Appt Today, Awaiting Results) 01/29/2025 12:23 PM CDT Abdominal discomfort in left lower quadrant POCT CREATININE FOR CONTRAST EVALUATION Routine 01/29/2025 12:20 PM CDT DIFFERENTIAL AUTO Routine 01/17/2025 2:3 5 PM CDT Primary biliary cholangitis (HCC) TSH Routine 01/17/2025 2:35 PM CDT Primary biliary cholangitis (HCC) Abnormal findings on diagnostic imaging of other specified body structures CBC WITH AUTO DIFFERENTIAL Routine 01/17/2025 2:35 PM CDT Primary biliary cholangitis (HCC) LIVER ELASTOGRAPHY W/O IMAGING W/I&R Routine 01/17/2025 2:25 PM CDT Primary biliary cholangitis (HCC) LIPID PANEL Routine 08/28/2024 10:25 AM [employer]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 DIAGNOSTIC MAMMOGRAM BILATERAL W HARISH Schedule Routine, Read Routine (OP Routine) 08/24/2023 12:36 PM [employer]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 In accordance with the [facility] Ambiguous Test Code Policy dated January 2003, we have completed your order by using the closest currently or formerly recognized AMA panel. We have assigned Comprehensive Metabolic Panel (14), Test Code #175691 to this request. If this is not the testing you wished to receive on this specimen, please contact the [facility] Client Inquiry/Technical Services Department to clarify the test order. We appreciate your business. 03/14/2025 9:24 AM CDT 03/14/2025 Narrative [facility] - 03/15/2025 8:12 AM CDT Performed at: [address] [place] [address], [place], [place] [id number] Scale Tank Operator: Eliceo Nance PhD, Phone: [phone] us Eulalia Pereira MD LAB BLOOD ORDERABLE S Final Result [facility] - 01 * (ABNORMAL) CBC/Diff Ambiguous Default (03/14/2025 9:24 AM CDT) WBC 6.4 3.4 - 10.8 x10E3/uL [facility] - 01 RBC 4.14 3.77 - 5.28 x10E6/uL [facility] - 01 Hgb 11.8 11.1 - 15.9 g/dL [facility] - 01 Hct 38.3 34.0 - 46.6 % [facility] - 01 MCV 93 79 - 97 fL [facility] - 01 MCH 28.5 26.6 - 33.0 pg [facility] - 01 MCHC 30.8(L) 31.5 - 35.7 g/dL [facility] - 01 Rdw 13.3 11.7 - 15.4 % [facility] - 01 Platelets 264 150 - 450 x10E3/uL [facility] - 01 Neutrophils pct 58 Not Estab. % [facility] - 01 Lymphs pct 29 Not Estab. % [facility] - 01 Monocytes pct 8 Not Estab. % [facility] - 01 Eosinophils pct 3 Not Estab. % [facility] - 01 Basophil pct 1 Not Estab. % [facility] - 01 Neutrophil abs 3.8 1.4 - 7.0 x10E3/uL [facility] - 01 Lymphs (Absolute) 1.9 0.7 - 3.1 x10E3/uL [facility] - 01 Monocyte abs 0.5 0.1 - 0.9 x10E3/uL [facility] - 01 Eosinophils, abs 0.2 0.0 - 0.4 x10E3/uL [facility] - 01 Basophils, abs 0.0 0.0 - 0.2 x10E3/uL [facility] - 01 Immature Granulocytes 1 Not Estab. % [facility] - 01 Immature Grans (Abs) 0.0 0.0 - 0.1 x10E3/uL [facility] - 01 Comment: A hand-written panel/profile was received from your office. In accordance with the [facility] Ambiguous Test Code Policy dated January 2003, we have assigned CBC with Differential/Platelet, Test Code #[id number] to this request. If this is not the testing you wished to receive on this specimen, please contact the [facility] Client Inquiry/ Technical Services Department to clarify the test order. We appreciate your business. 03/14/2025 9:24 AM CDT 03/14/2025 Narrative [facility] - 03/15/2025 8:12 AM CDT Performed at: [address] [place] [id number] Scale Tank Operator: Eliceo Nance PhD, Phone: [phone] us Eulalia Pereira MD LAB BLOOD ORDERABLE S Final Result [facility] - * Hepatitis C antibody (03/14/2025 9:24 AM CDT) Hep C Ab Non Reactive Non Reactive [facility] - 01 Comment: HCV antibody alone does not differentiate between previously resolved infection and active infection. Equivocal and Reactive HCV antibody results should be followed up with an HCV RNA test to support the diagnosis of active HCV infection. 03/14/2025 9:24 AM CDT 03/14/2025 Narrative [facility] - 03/15/2025 8:12 AM CDT Performed at: [address] [id number] Scale Tank Operator: Eliceo Nance PhD, Phone: [phone] us Eulalia Pereira MD LAB MICROBIOLOGY - GENERAL ORDERABLES Final Result Performing Organization Address [facility] de Phone Number [facility] * Albumin Creatinine Ratio, Urine (03/14/2025 9:24 AM CDT) Creatinine ur 77.4 Not Estab. mg/dL [facility] - 01 Microalbumin, ur 6.7 Not Estab. ug/mL [facility] - 01 Microalbumin/cre at ratio 9 0 - 29 mg/g creat [facility] - 01 Comment: Normal: 0 - 29 Moderately increased: 30 - 300 Severely increased: >300 03/14/2025 9:24 AM CDT 03/14/2025 Narrative [facility] - 03/15/2025 12:10 PM CDT Performed at: [address] [id number] Scale Tank Operator: Eliceo Nance PhD, Phone: [phone] us Eulalia Pereira MD LAB URINE ORDERABLE S Final Result Performing Organization Address [facility] de Phone Number [facility] * Hepatitis B surface antibody (immune status) (03/14/2025 9:24 AM CDT) HBsAb (immune status) Non Reactive [facility] - 01 Comment: Non Reactive: Not immune to HBV infection. Anti-HBs undetectable or less than 10 mIU/mL. Reactive: Evidence of HBV immunity. Anti-HBs levels greater than 10 mIU/mL. 03/14/2025 9:24 AM CDT 03/14/2025 Narrative [facility] - 03/15/2025 8:12 AM CDT Performed at: [address] [id number] Scale Tank Operator: Eliceo Nance PhD, Phone: [phone] us Eulalia Pereira MD LAB MICROBIOLOGY - GENERAL ORDERABLES Final Result Performing Organization Address [facility]/ZIP Co de Phone Number [facility] - * (ABNORMAL) Hemoglobin A1c (03/14/2025 9:24 AM CDT) Pathologist [facility] Hgb A1C 7.3(H) 4.8 - 5.6 % [facility] - 01 Comment: Prediabetes: 5.7 - 6.4 Diabetes: >6.4 Glycemic control for adults with diabetes: <7.0 03/14/2025 9:24 AM CDT 03/14/2025 Narrative [facility] - 03/15/2025 8:12 AM CDT Performed at: [address] [place] [id number] Scale Tank Operator: Eliceo Nance PhD, Phone: [phone] us Eulalia Pereira MD LAB BLOOD ORDERABLE S Final Result Performing Organization Address [facility] Co de Phone Number [facility] - * (ABNORMAL) Comprehensive metabolic panel (03/14/2025 9:24 AM CDT) Pathologist [facility] Glucose 132(H) 70 - 99 mg/dL [facility] - 01 BUN 22 8 - 27 mg/dL [facility] - 01 Creatinine, Serum 0.98 0.57 - 1.00 mg/dL [facility] - 01 eGFR 61 >59 mL/min/1.7 3 [facility] - 01 BUN/creat ratio 22 12 - 28 [facility] - 01 Sodium 140 134 - 144 mmol/L [facility] - 01 Potassium, sr 4.6 3.5 - 5.2 mmol/L [facility] - 01 Chloride 105 96 - 106 mmol/L [facility] - 01 CO2 20 20 - 29 mmol/L [facility] - 01 Calcium 9.7 8.7 - 10.3 mg/dL [facility] - 01 Protein, sr 6.7 6.0 - 8.5 g/dL [facility] - 01 Albumin 4.1 3.8 - 4.8 g/dL [facility] - 01 Globulin, Total 2.6 1.5 - 4.5 g/dL [facility] - 01 Bilirubin, Total 0.3 0.0 - 1.2 mg/dL [facility] - 01 Alk phos 81 44 - 121 IU/L [facility] - 01 Comment: Effective March 25, 2025 Alkaline Phosphatase reference interval will be changing to: Age Male Female 0 - 5 days 47 - 127 47 - 127 6 - 10 days 29 - 242 29 - 242 11 - 20 days 109 - 357 109 - 357 21 - 30 days 94 - 494 94 - 494 1 - 2 months 149 - 539 149 - 539 3 - 6 months 131 - 452 131 - 452 7 - 11 months 117 - 401 117 - 401 12 months - 6 years 158 - 369 158 - 369 7 - 12 years 150 - 409 150 - 409 13 years 156 - 435 78 - 227 14 years 114 - 375 64 - 161 15 years 88 - 279 56 - 134 16 years 74 - 207 51 - 121 17 years 63 - 161 47 - 113 18 - 20 years 51 - 125 42 - 106 21 - 50 years 47 - 123 41 - 116 51 - 80 years 49 - 135 51 - 125 >80 years 48 - 129 48 - 129 AST 26 0 - 40 IU/L [facility] - 01 ALT 21 0 - 32 IU/L [facility] - 01 03/14/2025 9:24 AM CDT 03/14/2025 Narrative [facility] - 03/15/2025 8:12 AM CDT Performed at: [address] [place] [id number] Scale Tank Operator: Eliceo Nance PhD, Phone: [phone] us Eulalia Pereira MD LAB BLOOD ORDERABLE S Final Result [facility] - 01 * US Thyroid (03/07/2025 8:41 AM CDT) Anatomical Region Laterality Modality Head and Neck N/A Ultrasound 03/18/2025 4:19 PM CDT Narrative 03/18/2025 4:29 PM CDT EXAM DESCRIPTION: US THYROID REASON FOR STUDY: Thyroid nodule follow-up TECHNIQUE: Ultrasound of the thyroid was performed with grayscale and color doppler. COMPARISON: 11/09/2023 FINDINGS: Right lobe measures 5.2 x 1.1 x 1.8 cm. Previous measurements 4.4 x 1.4 x 1.3 cm. There are several small colloid nodule like lesions. Largest in the midgland 3.9 mm. Unchanged. The isthmus measures 2 mm, uniform. The left lobe measures 5.3 x 1.3 x 1.7 cm. Previous measurement was 4.9 x 1.4 x 1.3 cm. Dominant left lobe lesion measures 16 x 13 x 14 mm inferior gland. This is a TR 2 lesion, nonspecific. Biopsy and follow-up not required per ACR criteria. Previously this lesion was measures 17 x 13 x 13 mm therefore stable. Inferior to this is another similar solid cystic lesion which is I so echogenic mostly that measures 14 x 14 x 10 mm. This is also a TR 2 lesion.. Previous measurement was 13 x 10 x 10 mm. There are a few scattered small colloid nodules elsewhere. IMPRESSION: Stable dominant left-sided nodules. These are TR 2 lesions based on similar criteria of mixed solid cystic, smooth, wider than taller, lack of calcification and hyperechogenic 2 Iso echogenic content of the solid portions. Correlate with the biopsy results. Scattered tiny colloid nodules elsewhere. The findings are consistent with multinodular goiter. REFERENCE: According to the ACR Thyroid Imaging, Reporting and Data System (TI-RADS): White Paper of the ACR TI-RADS Committee Nov, 2016 recommendations regarding the management of thyroid nodules are as follows: 1. TI-RADS 1: Risk of malignancy <2%, no FNA or follow up required. 2. TI-RADS 2: Risk of malignancy <2%, no FNA or follow up required. 3. TI-RADS 3: Risk of malignancy 2%-5%. Nodules 1.5 cm or greater follow up at 1, 3 and 5 years recommended, for nodules 2.5 cm or greater FNA recommended. 4. TI-RADS 4: Risk of malignancy 5%-20% Nodules 1.0 cm or greater follow up at 1, 2, 3 and 5 years recommended, for nodules 1.5 cm or greater FNA recommended 5. TI-RADS 5: Risk of malignancy >20%. Nodules 0.5 cm or greater annual follow up for 5 years recommended, for nodules 1.0 cm or greater FNA recommended. The ACT TI-RADS committee recommends targeting no more than two nodules for FNA. If three or more nodules meet criteria for FNA, the two with the most suspicious appearance based on ACR TI-RADS points should be sampled. THIS IS AN ELECTRONICALLY VERIFIED FINAL REPORT 03/18/2025 4:29 PM - Electronically signed by Vladimir Bustos M.D. DA: JEANNETTE Report ID: [id number] Reading Location: [facility] Procedure Note Vladimir Bustos MD - 03/18/2025 EXAM DESCRIPTION: US THYROID REASON FOR STUDY: Thyroid nodule follow-up TECHNIQUE: Ultrasound of the thyroid was performed with grayscale andcolor doppler. COMPARISON: 11/09/2023 FINDINGS: Right lobe measures 5.2 x 1.1 x 1.8 cm. Previous measurements4.4 x 1.4 x 1.3 cm. There are several small colloid nodule like lesions.Largest in the midgland 3.9 mm. Unchanged. The isthmus measures 2 mm, uniform. The left lobe measures 5.3 x 1.3 x 1.7 cm. Previous measurement was 4.9 x1.4 x 1.3 cm. Dominant left lobe lesion measures 16 x 13 x 14 mm inferiorgland. This is a TR 2 lesion, nonspecific. Biopsy and follow-up not required perACR criteria. Previously this lesion was measures 17 x 13 x 13 mm therefore stable. Inferior to this is another similar solid cystic lesion which Evan so echogenic mostly that measures 14 x 14 x 10 mm. This is also a TR 2lesion.. Previous measurement was 13 x 10 x 10 mm. There are a few scattered small colloid nodules elsewhere. IMPRESSION: Stable dominant left-sided nodules. These are TR 2 lesions based on similar criteria of mixed solid cystic, smooth, wider thantaller, lack of calcification and hyperechogenic 2 Iso echogenic content of thesolid portions. Correlate with the biopsy results. Scattered tiny colloidnodules elsewhere. The findings are consistent with multinodular goiter. REFERENCE: According to the ACR Thyroid Imaging, Reporting and Data System (TI-RADS): White Paper of the ACR TI-RADS Committee Nov, 2016recommendations regarding the management of thyroid nodules are as follows: 1. TI-RADS 1: Risk of malignancy <2%, no FNA or follow up required. 2. TI-RADS 2: Risk of malignancy <2%, no FNA or follow up required. 3. TI-RADS 3: Risk of malignancy 2%-5%. Nodules 1.5 cm or greater followup at 1, 3 and 5 years recommended, for nodules 2.5 cm or greater FNArecommended. 4. TI-RADS 4: Risk of malignancy 5%-20% Nodules 1.0 cm or greater followup at 1, 2, 3 and 5 years recommended, for nodules 1.5 cm or greater FNA recommended 5. TI-RADS 5: Risk of malignancy >20%. Nodules 0.5 cm or greater annual follow up for 5 years recommended, for nodules 1.0 cm or greater FNA recommended. The ACT TI-RADS committee recommends targeting no more than two nodulesfor FNA. If three or more nodules meet criteria for FNA, the two with themost suspicious appearance based on ACR TI-RADS points should be sampled. THIS IS AN ELECTRONICALLY VERIFIED FINAL REPORT 03/18/2025 4:29 PM - Electronically signed by Vladimir Bustos M.D. DA: JEANNETTE Report ID: [id number] Reading Location: [id number] us Eulalia Pereira MD IMG US PROCEDURES F inal Result * US RUQ (03/07/2025 8:40 AM CDT) Anatomical Region Laterality Modality Abdomen N/A Ultrasound 03/15/2025 10:0 1 PM CDT Narrative 03/15/2025 10:04 PM CDT EXAM DESCRIPTION: US RUQ REASON FOR STUDY: Follow-up gallbladder polyp TECHNIQUE: Ultrasound of the right upper quadrant of the abdomen was performed with grayscale and color doppler. COMPARISON: 12/20/2023 FINDINGS: PANCREAS: Visualized portions of the pancreas are within normal limits. Portions of the pancreatic body and tail are obscured due to bowel gas. LIVER: The liver demonstrates an increase in echotexture with attenuation of the ultrasound beam characteristic of fatty infiltration. No cystic or solid mass lesions were seen within the liver. The liver measures 13.7 cm in greatest diameter. GALLBLADDER: The gallbladder appears unremarkable. No cholelithiasis. No gallbladder wall thickening or pericholecystic fluid. No positive sonographic [place] sign reported. There are 2 discrete gallbladder polyps, both measuring 3 mm. BILIARY: There is no intrahepatic or extrahepatic biliary ductal dilatation. Common bile duct measures 2 mm in diameter. RIGHT KIDNEY: Normal size. Normal echogenicity. 1.2 cm right renal cyst. No hydronephrosis. Measures 9.9 cm in length. OTHER: No other significant findings. IMPRESSION: 1. Fatty infiltration of the liver. 2. 2 discrete gallbladder polyps, both measuring 3 mm. 3. 1.2 cm right renal cyst. THIS IS AN ELECTRONICALLY VERIFIED FINAL REPORT 03/15/2025 10:04 PM - Electronically signed by Jc Booth M.D. KT: DOLLY Report ID: [id number] Reading Location: [id number] Procedure Note Jc Booth MD - 03/15/2025 EXAM DESCRIPTION: US RUQ REASON FOR STUDY: Follow-up gallbladder polyp TECHNIQUE: Ultrasound of the right upper quadrant of the abdomen wasperformed with grayscale and color doppler. COMPARISON: 12/20/2023 FINDINGS: PANCREAS: Visualized portions of the pancreas are withinnormal limits. Portions of the pancreatic body and tail are obscured due to bowel gas. LIVER: The liver demonstrates an increase in echotexture withattenuation of the ultrasound beam characteristic of fatty infiltration. No cystic orsolid mass lesions were seen within the liver. The liver measures 13.7 cm in greatest diameter. GALLBLADDER: The gallbladder appears unremarkable. No cholelithiasis.No gallbladder wall thickening or pericholecystic fluid. No positivesonographic [place] sign reported. There are 2 discrete gallbladder polyps, both measuring 3 mm. BILIARY: There is no intrahepatic or extrahepatic biliary ductaldilatation. Common bile duct measures 2 mm in diameter. RIGHT KIDNEY: Normal size. Normal echogenicity. 1.2 cm right renalcyst. No hydronephrosis. Measures 9.9 cm in length. OTHER: No other significant findings. IMPRESSION: 1. Fatty infiltration of the liver. 2. 2 discrete gallbladder polyps, both measuring 3 mm. 3. 1.2 cm right renal cyst. THIS IS AN ELECTRONICALLY VERIFIED FINAL REPORT 03/15/2025 10:04 PM - Electronically signed by Jc Booth M.D. KT: KT Report ID: [id number] Reading Location: [place] [id number] us Ashley Greene NP IMG US PROCEDURES Final Result * eGFR (01/29/2025 12:48 PM CDT) eGFR 68 >=60 mL/min/1. 73 m2 Comment: Interpretive Data Reference Interval Normal >/= 90 mL/min/1.73m2 Mildly decreased* 60 - 89 mL/min/1.73m2 Mildly to moderately decreased 45 - 59 mL/min/1.73m2 Moderately to severely decreased 30 - 44 mL/min/1.73m2 Severely decreased 15 - 29 mL/min/1.73m2 Kidney Failure < 15 mL/min/1.73m2 *Relative to young adult level Estimated glomerular filtration rate is determined by the 2020 CKD-EPI equation recommended by the National Kidney Foundation (A Unifying Approach to GFR Estimation: Recommendations of the NKF-ASK Task Force on Reassessing the Inclusion of Race in Diagnosing Kidney Disease, JASN 2020). The CKD-EPI equation should not be used for patients with unstable renal function and has not been validated in children and those over 70. Current interpretive data was last reviewed 2021. Testing performed by: [facility], [address] [place] [address], [place]., [address] Blood 01/29/2025 12:4 8 PM CDT 01/29/2025 4:36 PM CDT us Eulalia Pereira MD LAB BLOOD ORDERABLE S Final Result [facility] [address] [facility] Department [place] [address] * Differential, auto (01/29/2025 12:48 PM CDT) Neutrophil abs 6.13 1.50 - 6.50 K/cumm Comment:Testing performed by : [address] [address] Imm gran abs 0.06 0.00 - 0.10 K/cumm ABDIFATAH Comment:Testing performed by : [address] [address] Lymphocyte abs 1.69 0.80 - 3.30 K/cumm ABDIFATAH Comment:Testing performed by : [address] [address] Monocyte abs 0.46 0.20 - 0.80 K/cumm ABDIFATAH Comment:Testing performed by : [address] [address] Eosinophil abs 0.17 0.00 - 0.50 K/cumm ABD[facility]ATAH Comment:Testing performed by : [address] [address] Basophil abs 0.03 0.00 - 0.10 K/cumm ABD[facility]H Comment:Testing performed by : [address] [address] Neutrophil pct 71.7 % [facility] Comment: Interpretive Data Percent cell count reference ranges are not reported, since discordance with absolute values may lead to misinterpretation of CBC data. Current Interpretive Data was last revised on 2017. Testing performed by: [address] [address] Imm gran pct 0.7 % [facility] Comment: Interpretive Data Percent cell count reference ranges are not reported, since discordance with absolute values may lead to misinterpretation of CBC data. Current Interpretive Data was last revised on 2017. Testing performed by: [address] [address] Lymphocyte pct 19.8 % [facility] Comment: Interpretive Data Percent cell count reference ranges are not reported, since discordance with absolute values may lead to misinterpretation of CBC data. Current Interpretive Data was last revised on 2017. Testing performed by: [address] [address] Monocyte pct 5.4 % [facility] Comment: Interpretive Data Percent cell count reference ranges are not reported, since discordance with absolute values may lead to misinterpretation of CBC data. Current Interpretive Data was last revised on 2017. Testing performed by: [address] [address] Eosinophil pct 2.0 % [facility] Comment: Interpretive Data Percent cell count reference ranges are not reported, since discordance with absolute values may lead to misinterpretation of CBC data. Current Interpretive Data was last revised on 2017. Testing performed by: [address] [address] Basophil pct 0.4 % [facility] Comment: Interpretive Data Percent cell count reference ranges are not reported, since discordance with absolute values may lead to misinterpretation of CBC data. Current Interpretive Data was last revised on 2017. Testing performed by: [address] [address] Blood 01/29/2025 12:4 8 PM CDT 01/29/2025 4:34 PM CDT us Eulalia Pereira MD LAB BLOOD ORDERABLE S Final Result [facility] [address] [facility] Department [place] [address] * (ABNORMAL) Urinalysis reflex to microscopic and culture Urine, clean voided (01/29/2025 12:48 PM CDT) Color, ur Yellow Yellow Comment:Testing performed by : [address] [address] Clarity, ur Clear Clear ABDIF[facility]H Comment:Testing performed by : [address] [address] Specific gravity, ur >1.050(A) 1.003 - 1.030 ABD[facility] Comment:Testing performed by : [facility], [address] [place] [address], [place]., [address] pH, urine 6.0 ABDIFATAH Comment: Interpretive Data U rine pH is affected by diet, medications, systemic acid-base disturbances, and renal tubular function. pH may affect urinary stone formation. For example, urine pH below 6.0 may help reduce the tendency for calcium phosphate stones and pH greater than 6.0 may reduce the tendency for uric acid stone formation. Source: [facility]AFER Current Interpretive Data was last revised on 2017 Testing performed by: [facility], [address] [place] [address], [place]., [address] Protein, ur ql Negative Negative ABDIF[facility] Comment:Testing performed by : [address], [place]., [address] Glucose, ur ql 4+(A) Negative [facility]BD[facility] Comment:Testing performed by : [address], [place]., [address] Ketones, ur Negative Negative [facility]BD[facility] Comment:Testing performed by : [address], [place]., [address] Bilirubin, ur Negative Negative [facility]BD[facility]H Comment:Testing performed by : [address], [place]., [address] Blood, ur Negative Negative [facility]BD[facility] Comment:Testing performed by : [address], [place]., [address] Urobilinogen, ur <2.0 <2.0 mg/dL [facility] Comment:Testing performed by : [address] [address] Nitrite, ur Negative Negative [facility]BD[facility] Comment:Testing performed by : [address], [place]., [address] Leukocyte esterase, ur Negative Negative [facility] Comment:Testing performed by : [address] [address] UA reflex comment Reflex conditions for microscopic UA and culture not met. [facility] Comment:Testing performed by : [address], [place]., [address] Urine, clean voided 01/29/2025 12:48 PM CDT 01/29/2025 4:40 PM CDT Narrative [facility] - 01/29/2025 4:55 PM CDT Urine Collection Method->Clean Catch Eulalia Pereira MD LAB MICROBIOLOGY - GENERAL ORDERABLES Final Result [facility] [address] [facility] Department [place] [address] * (ABNORMAL) CBC with auto differential (01/29/2025 12:48 PM CDT) WBC 8.54 3.80 - 9.90 K/cumm Comment:Testing performed by : [address] [address] Hgb 11.9 11.9 - 15.5 g/dL [facility] Comment:Testing performed by : [address] [address] Hct 37.1 35.6 - 45.5 % [facility] Comment:Testing performed by : [address] [address] Plt 278 150 - 400 K/cumm ABDIFATAH Comment:Testing performed by : [address] [address] MPV 11.4 9.1 - 12.3 fL [facility] Comment:Testing performed by : [address] [address] RBC 4.19 3.90 - 5.20 M/cumm ABD[facility]ATAH Comment:Testing performed by : [address] [address] MCV 88.5 81.3 - 96.4 fL [facility] Comment:Testing performed by : [address] [address] MCH 28.4 27.1 - 33.3 pg [facility]H Comment:Testing performed by : [address] [address] MCHC 32.1(L) 32.3 - 35.7 g/dL [facility] Comment:Testing performed by : [address] [address] RDW CV 13.9 11.1 - 14.9 % ABD[facility]H BEJARANO Comment:Testing performed by : [address] [address] RDW SD 44.6 35.7 - 48.1 fL [facility]BD[facility] BEJARANO Comment:Testing performed by : [address] [address] NRBC abs 0.00 0.00 - 0.01 K/cumm ABDIF[facility]H BEJARANO Comment:Testing performed by : [address] [address] Blood 01/29/2025 12:4 8 PM CDT 01/29/2025 4:34 PM CDT us Eulalia Pereira MD LAB BLOOD ORDERABLE S Final Result Performing Organization Address City/[facility]/ZIP Co de Phone Number [facility] [address] [facility] Department [place] [address] * Albumin Creatinine Ratio, Urine (01/29/2025 12:48 PM CDT) Albumin Ur 14.7 mg/L Comment: Interpretive Data No reference range established. Current interpretive data was last revised 2018. Testing performed by: [address] [address] Creatinine Ur 85.0 mg/dL ABD[facility]H Comment: Interpretive Data No reference range established. Current interpretive data was last revised 2018. Testing performed by: [address] [address] Albumin Creatinine Ratio, Ur 17 1 - 29 mg/g [facility]H Comment:Testing performed by : [address] [address] Urine 01/29/2025 12:4 8 PM CDT 01/29/2025 4:37 PM CDT us Eulalia Pereira MD LAB URINE ORDERABLE S Final Result Performing Organization Address City/[facility]/ZIP Co de Phone Number [facility] [address] [facility] [place] [address] * (ABNORMAL) Hemoglobin A1c (01/29/2025 12:48 PM CDT) Pathologist [facility] Hgb A1C 6.9(H) 4.0 - 5.6 % Comment:Testing performed by : [address] [address] Estimated Average Glucose 151 mg/dL [facility]BDIF[facility] Comment: The ADA recommends reporting an estimated Average Glucose (eAG) with all Hemoglobin A1c results using the equation derived from a study of 507 normal and diabetic adults. Minority populations were underrepresented and children were not included. (Diabetes Care 31:5016-7324, 2008). The eAG is not equivalent to a fasting glucose. Testing performed by: [address] [address] Blood 01/29/2025 12:4 8 PM CDT 01/29/2025 4:36 PM CDT us Eulalia Pereira MD LAB BLOOD ORDERABLE S Final Result [facility] [address] [facility] [place] [address] * (ABNORMAL) Comprehensive metabolic panel (01/29/2025 12:48 PM CDT) [facility] Sodium 138 135 - 145 mmol/L Comment:Testing performed by : [address] [address] Potassium, pl 4.6 3.3 - 4.9 mmol/L ABD[facility]H BEJARANO Comment:Testing performed by : [address] [address] Chloride 101 97 - 110 mmol/L [facility]BD[facility]H BEJARANO Comment:Testing performed by : [address] [address] CO2 25 22 - 32 mmol/L [facility]BD[facility] BEJARANO Comment:Testing performed by : [address] [address] Anion gap 12 2 - 15 mmol/L [facility] BEJARANO Comment:Testing performed by : [address] [address] BUN 21 6 - 25 mg/dL [facility] Comment:Testing performed by : [address] [address] Creatinine 0.90 0.60 - 1.10 mg/dL [facility] Comment:Testing performed by : [address] [address] Glucose 267(H) 70 - 199 mg/dL [facility] Comment: Interpretive Data Fasting glucose >/= 126 mg/dl is diagnostic for diabetes. Fasting is defined as no caloric intake for at least 8 hours. Fasting glucose between 100 mg/dl to 125 mg/dl is diagnostic of prediabetes. In a patient with classic symptoms of hyperglycemia or hyperglycemic crisis, a random glucose >/= 200 mg/dl is diagnostic for diabetes. In the absence of unequivocal hyperglycemia, results should be confirmed by repeat testing. The classification and Diagnosis of Diabetes Diabetes Care 2021; 46: S19-S40. Current interpretive data was last revised 2022. Testing performed by: [address] [address] Calcium 10.7(H) 8.5 - 10.3 mg/dL ABD[facility] Comment:Testing performed by : [address] [address] Bilirubin, total 0.5 0.1 - 1.2 mg/dL [facility]BD[facility] Comment:Testing performed by : [address] [address] Protein, pl 7.1 6.5 - 8.5 g/dL [facility] Comment:Testing performed by : [address] [address] Albumin 4.2 3.5 - 5.0 g/dL [facility] Comment:Testing performed by : [address] [address] Alk phos 77 40 - 130 Units/L [facility]BD[facility] Comment:Testing performed by : [address] [address] ALT 21 7 - 45 Units/L [facility] Comment:Testing performed by : [address] [address] AST 31 10 - 45 Units/L ABDIF[facility]H DARCI Comment:Testing performed by : [facility], [address] [place]., [address] Blood 01/29/2025 12:4 8 PM CDT 01/29/2025 4:36 PM CDT us Eulalia Pereira MD LAB BLOOD ORDERABLE S Final Result [facility] DARCI [address] [facility] Department [place] [address] * CT Abdomen Pelvis W Contrast (01/29/2025 12:23 PM CDT) Anatomical Region Laterality Modality Body N/A Computed Tomogra phy 01/31/2025 12:3 3 AM CDT Narrative 01/31/2025 12:36 AM CDT EXAM DESCRIPTION: CT ABDOMEN PELVIS W CONTRAST REASON FOR STUDY: LLQ abdominal pain General abdomen pain, gassy, vomiting since last night. Hx of right oophorectomy. TECHNIQUE: CT scan of the abdomen and pelvis performed with intravenous and without oral contrast using helical scanning technique with dynamic intravenous contrast injection. Reconstructed coronal and sagittal MPR images reviewed. All images stored on PACS. Automated exposure control was used as a dose optimization technique for this examination. CONTRAST TYPE/DOSE: 100mL of IOVERSOL 350 MG IODINE/ML INTRAVENOUS SYRINGE injected via intravenous COMPARISON: 12/06/2024 FINDINGS: LOWER CHEST: No significant pulmonary abnormalities. No effusion. LIVER: Decreased attenuation as seen with fibrofatty changes. GALLBLADDER: No stones identified. No wall thickening or inflammatory changes. BILE DUCTS: No intrahepatic or extrahepatic ductal dilatation. SPLEEN: Normal size. No focal lesions. PANCREAS: No identified cystic or solid masses. No significant calcifications. No adjacent inflammation or peripancreatic fluid collections. Pancreatic duct not dilated. ADRENALS: Normal. KIDNEYS/URINARY TRACT: 1 cm cyst right kidney. No visualized stones. No hydronephrosis or hydroureter. Symmetric enhancement. Urinary bladder is unremarkable. GI: No dilated bowel loops. No obvious wall thickening. Normal appendix. Scattered diverticular disease without diverticulitis. PERITONEUM: No ascites or free air. RETROPERITONEUM: No mass or adenopathy. REPRODUCTIVE: Calcified uterine fibroids. VASCULATURE: No abdominal aortic aneurysm. MUSCULOSKELETAL: No significant abnormality. OTHER: No other abnormality. IMPRESSION: 1. Fatty infiltration of the liver. 2. 1 cm cyst right kidney. 3. Diverticulosis. No evidence of diverticulitis. 4. Calcified uterine fibroids. THIS IS AN ELECTRONICALLY VERIFIED FINAL REPORT 01/31/2025 12:36 AM - Electronically signed by Jc Booth M.D. KT: KT Report ID: [id number] Reading Location: [id number] Procedure Note Jc Booth MD - 01/31/2025 EXAM DESCRIPTION: CT ABDOMEN PELVIS W CONTRAST REASON FOR STUDY: LLQ abdominal pain General abdomen pain, gassy, vomiting since last night. Hx of right oophorectomy. TECHNIQUE: CT scan of the abdomen and pelvis performed with intravenousand without oral contrast using helical scanning technique with dynamic intravenous contrast injection. Reconstructed coronal and sagittal MPRimages reviewed. All images stored on PACS. Automated exposure control was usedas a dose optimization technique for this examination. CONTRAST TYPE/DOSE: 100mL of IOVERSOL 350 MG IODINE/ML INTRAVENOUSSYRINGE injected via intravenous COMPARISON: 12/06/2024 FINDINGS: LOWER CHEST: No significant pulmonary abnormalities. Noeffusion. LIVER: Decreased attenuation as seen with fibrofatty changes. GALLBLADDER: No stones identified. No wall thickening or inflammatory changes. BILE DUCTS: No intrahepatic or extrahepatic ductal dilatation. SPLEEN: Normal size. No focal lesions. PANCREAS: No identified cystic or solid masses. No significant calcifications. No adjacent inflammation or peripancreatic fluidcollections. Pancreatic duct not dilated. ADRENALS: Normal. KIDNEYS/URINARY TRACT: 1 cm cyst right kidney. No visualized stones. No hydronephrosis or hydroureter. Symmetric enhancement. Urinary bladderis unremarkable. GI: No dilated bowel loops. No obvious wall thickening. Normal appendix. Scattered diverticular disease without diverticulitis. PERITONEUM: No ascites or free air. RETROPERITONEUM: No mass or adenopathy. REPRODUCTIVE: Calcified uterine fibroids. VASCULATURE: No abdominal aortic aneurysm. MUSCULOSKELETAL: No significant abnormality. OTHER: No other abnormality. IMPRESSION: 1. Fatty infiltration of the liver. 2. 1 cm cyst right kidney. 3. Diverticulosis. No evidence of diverticulitis. 4. Calcified uterine fibroids. THIS IS AN ELECTRONICALLY VERIFIED FINAL REPORT 01/31/2025 12:36 AM - Electronically signed by Jc Booth M.D. KT: KT Report ID: [id number] Reading Location: [id number] us Eulalia Pereira MD IMG CT PROCEDURES F inal Result * POCT creatinine for contrast evaluation (01/29/2025 12:20 PM CDT) [facility] Creatinine POC 1.10 0.60 - 1.10 mg/dL Comment:Testing performed by : [facility], [address] [place] [address]., [address] Blood 01/29/2025 12:2 0 PM CDT 01/29/2025 12:20 PM CDT Eulalia Pereira MD POINT OF CARE TEST ORDERABLES Final Result [facility] [address] [facility] Department [place] [address] * Differential, auto (01/17/2025 2:35 PM CDT) [facility] Neutrophil abs 6.09 1.50 - 6.50 K/cumm Imm gran abs 0.06 0.00 - 0.10 K/cumm [facility] Lymphocyte abs 2.06 0.80 - 3.30 K/cumm [facility] Monocyte abs 0.54 0.20 - 0.80 K/cumm [facility] Eosinophil abs 0.10 0.00 - 0.50 K/cumm [facility] Basophil abs 0.03 0.00 - 0.10 K/cumm [facility] Neutrophil pct 68.6 % [facility] Comment: Interpretive Data Percent cell count reference ranges are not reported, since discordance with absolute values may lead to misinterpretation of CBC data. Current Interpretive Data was last revised on 2017. Imm gran pct 0.7 % [facility] Comment: Interpretive Data Percent cell count reference ranges are not reported, since discordance with absolute values may lead to misinterpretation of CBC data. Current Interpretive Data was last revised on 2017. Lymphocyte pct 23.2 % [facility] Comment: Interpretive Data Percent cell count reference ranges are not reported, since discordance with absolute values may lead to misinterpretation of CBC data. Current Interpretive Data was last revised on 2017. Monocyte pct 6.1 % [facility] Comment: Interpretive Data Percent cell count reference ranges are not reported, since discordance with absolute values may lead to misinterpretation of CBC data. Current Interpretive Data was last revised on 2017. Eosinophil pct 1.1 % [facility] Comment: Interpretive Data Percent cell count reference ranges are not reported, since discordance with absolute values may lead to misinterpretation of CBC data. Current Interpretive Data was last revised on 2017. Basophil pct 0.3 % [facility] Comment: Interpretive Data Percent cell count reference ranges are not reported, since discordance with absolute values may lead to misinterpretation of CBC data. Current Interpretive Data was last revised on 2017. Blood 01/17/2025 2:35 PM CDT 01/17/2025 3:01 PM CDT Ashley Greene ALCOHOLISM WORKER LAB BLOOD ORDERABLES Fin al Result [facility] [place] [address] * (ABNORMAL) CBC with auto differential (01/17/2025 2:35 PM CDT) WBC 8.88 3.80 - 9.90 K/cumm Hgb 11.4(L) 11.9 - 15.5 g/dL [facility] Hct 34.5(L) 35.6 - 45.5 % [facility] Plt 327 150 - 400 K/cumm [facility] MPV 10.5 9.1 - 12.3 fL [facility] RBC 3.93 3.90 - 5.20 M/cumm [facility] MCV 87.8 81.3 - 96.4 fL [facility] MCH 29.0 27.1 - 33.3 pg [facility] MCHC 33.0 32.3 - 35.7 g/dL [facility] RDW CV 13.6 11.1 - 14.9 % [facility] RDW SD 43.9 35.7 - 48.1 fL [facility] NRBC abs 0.00 0.00 - 0.01 K/cumm [facility] Blood 01/17/2025 2:35 PM CDT 01/17/2025 3:01 PM CDT Ashley Greene NP LAB BLOOD ORDERABLES Fin al Result Performing Organization Address [facility]/RUST Co de Phone Number [facility] Department [place] [address] * TSH (01/17/2025 2:35 PM CDT) Thyroid Stimulating Hormone 2.56 0.30 - 4.20 mcIUnit/mL Blood 01/17/2025 2:35 PM CDT 01/17/2025 3:01 PM CDT Ashley Greene NP LAB BLOOD ORDERABLES Fin al Result Performing Organization Address City/[facility]/RUST Co de Phone Number [facility] Department [place] [address] * Liver Elastography w/o Imaging [facility] (All Locations) (01/17/2025 2:25 PMCDT) Anatomical Region Laterality Modality Other Ashley Greene NP GI PROCEDURE ORDERABLES Final Result * Lipid panel (08/28/2024 10:25 AM PACK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) Cholesterol 144 100 - 199 mg/dL [facility] - 01 Triglycerides 133 0 - 149 mg/dL [facility] - 01 HDL Cholesterol 54 >39 mg/dL [facility] - 01 VLDL 23 5 - 40 mg/dL [facility] - 01 LDL, calculated 67 0 - 99 mg/dL [facility] - 01 08/28/2024 10:2 5 AM PACK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 08/28/2024 Narrative [facility] - 08/29/2024 8:11 AM PACK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 Performed at: 01 - [facility] [address] [id number] Scale Tank Operator: Eliceo Nance PhD, Phone: [phone] us Yarelis GALLAGHER LAB BLOOD ORDERABLES Fin al Result [facility] - [facility] * Diagnostic Mammogram Bilateral W Harish (08/24/2023 12:36 PM PACK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) Anatomical Region Laterality Modality Breast Bilateral Mammography 08/24/2023 3:14 PM PACK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 Impressions 08/24/2023 3:29 PM PACK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 No suspicious mammographic abnormality in either breast. No suspicious mammographic or sonographic abnormality at the site of prior pain in the LEFT breast. OVERALL FINAL ASSESSMENT: BI-RADS Category 1: Negative. RECOMMENDATION: 1. Annual screening mammography is recommended. 2. Clinical follow-up for the area of prior pain in the LEFT breast is recommended. Any further management should be based on clinical assessment. Dictated by: Stefany Lorenzo DO The radiology attending physician has personally reviewed this study, and had reviewed and/or edited this written report and agrees with it. Electronically signed by: Xiomara Wilkes M.D. Narrative 08/24/2023 3:29 PM PACK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 EXAMINATION: BILATERAL DIGITAL DIAGNOSTIC MAMMOGRAM INCLUDING CAD AND BILATERAL DIGITAL BREAST TOMOSYNTHESIS; LEFT BREAST SONOGRAM HISTORY: 72-year-old woman presents with focal left breast pain in the 3 o'clock position of her left breast. Patient states she is no pain today. COMPARISON: Multiple prior mammograms dating back to 04/21/2020, most recent from 07/28/2022. TECHNIQUE: Full field digital mammographic views of BOTH breasts were performed, including computer aided detection (CAD) and BILATERAL digital breast tomosynthesis (DBT). Directed ultrasound evaluation of the LEFT breast was performed. BREAST PARENCHYMAL COMPOSITION: The breasts are heterogenously dense, which may obscure small masses. MAMMOGRAM FINDINGS: Questioned asymmetry in the central right breast, seen on the craniocaudal view, disperses on additional views. There is no suspicious mass, architectural distortion, or grouped calcifications in either breast. SONOGRAM FINDINGS: Targeted sonographic evaluation of patient's area of pain in the left breast, 2:00 to 4:00, 6 cm from the nipple, demonstrated no focal suspicious abnormal solid or cystic lesion. Procedure Note Xiomara Wilkes MD - 08/24/2023 EXAMINATION: BILATERAL DIGITAL DIAGNOSTIC MAMMOGRAM INCLUDING CAD AND BILATERAL DIGITAL BREAST TOMOSYNTHESIS; LEFT BREAST SONOGRAM HISTORY: 72-year-old woman presents with focal left breast pain in the 3 o'clock position of her left breast. Patient states she is no pain today. COMPARISON: Multiple prior mammograms dating back to 04/21/2020, most recent from 07/28/2022. TECHNIQUE: Full field digital mammographic views of BOTH breasts were performed, including computer aided detection (CAD) and BILATERAL digital breast tomosynthesis (DBT). Directed ultrasound evaluation of the LEFT breast was performed. BREAST PARENCHYMAL COMPOSITION: The breasts are heterogenously dense, which may obscure small masses. MAMMOGRAM FINDINGS: Questioned asymmetry in the central right breast, seen on the craniocaudal view, disperses on additional views. There is no suspicious mass, architectural distortion, or grouped calcifications in either breast. SONOGRAM FINDINGS: Targeted sonographic evaluation of patient's area of pain in the left breast, 2:00 to 4:00, 6 cm from the nipple, demonstrated no focal suspicious abnormal solid or cystic lesion. IMPRESSION: No suspicious mammographic abnormality in either breast. No suspicious mammographic or sonographic abnormality at the site of prior pain in the LEFT breast. OVERALL FINAL ASSESSMENT: BI-RADS Category 1: Negative. RECOMMENDATION: 1. Annual screening mammography is recommended. 2. Clinical follow-up for the area of prior pain in the LEFT breast is recommended. Any further management should be based on clinical assessment. Dictated by: Stefany Lorenzo DO The radiology attending physician has personally reviewed this study, and had reviewed and/or edited this written report and agrees with it. Electronically signed by: Xiomara Wilkes M.D. Eulalia Pereira MD IMG MAMMO PROCEDURE S Final Result * HM COLONOSCOPY (02/25/2023) Historical Provider HEALTH MAINTENANCE Final Result * Dexa Axial Skeleton Bone Density 1 or 2 Site (11/04/2022 1:31 PM CDT) Anatomical Region Laterality Modality Body N/A Mammography 11/04/2022 5:11 PM CDT Narrative 11/04/2022 5:12 PM CDT EXAM DESCRIPTION: DEXA AXIAL SKELETON BONE DENSITY 1 OR MORE SITES REASON FOR STUDY: 71 y/o year old F with given history of screening. Supervisor Paper Machine/Model: [id number] (S/N [id number]) CLINICAL INFORMATION: Current height: 64.5 inches Maximum height: 65 inches Weight: 120 pounds Risk factors: None COMPARISON: 04/21/2020 FINDINGS: AP LUMBAR SPINE L1-L4: Total BMD is 0.840 g/cm2 T-score is -1.9 This is a 2.3% increase in comparison to prior exam which is not statistically significant. LEFT HIP: Total BMD is 0.709 g/cm2 T-score is -1.9 This is a 0.5% increase in comparison to prior exam which is not statistically significant. Femoral neck BMD is 0.586 g/cm2 T-score is -2.4 FRAX: 10 year risk for a major osteoporotic fracture is 12 %, 10 year risk for a hip fracture is 3 % IMPRESSION: Low bone mass REFERENCE: Bone mineral density: Normal (T-score above or = -1.0) Low bone mass (T-score between -1.0 and -2.5) replaces the previously used term osteopenia Osteoporosis (T-score = or below -2.5) Medical evaluation for secondary causes of low bone mineral density may be appropriate. FRAX is a World Health Organization validated fracture risk assessment tool that calculates a person's 10 year probability of a major osteoporosis related fracture and hip fracture. According to the National Osteoporosis Foundation guidelines, postmenopausal women and men age 50 or older with low bone mass and a 10 year probability of a major osteoporosis related fracture = or greater than 20% or a 10 year probability of a hip fracture = or greater than 3% should be considered for treatment. For further information, including treatment recommendations, please refer to the 2013 ISCD Official Positions (http://www.iscd.org) and the NOF's Clinician's Guide to Prevention and Treatment of Osteoporosis (http://www.nof.org/professionals/clinical-guidelines) THIS IS AN ELECTRONICALLY VERIFIED FINAL REPORT 11/04/2022 5:12 PM - Electronically signed by Jenny Pineda M.D. TW: Report ID: [id number] Reading Location: [place] [address] Procedure Note Jenny Pineda MD - 11/04/2022 EXAM DESCRIPTION: DEXA AXIAL SKELETON BONE DENSITY 1 OR MORE SITES REASON FOR STUDY: 71 y/o year old F with given history of screening. Supervisor Paper Machine/Model: [id number] (S/N [id number]) CLINICAL INFORMATION: Current height: 64.5 inches Maximum height: 65 inches Weight: 120 pounds Risk factors: None COMPARISON: 04/21/2020 FINDINGS: AP LUMBAR SPINE L1-L4: Total BMD is 0.840 g/cm2 T-score is -1.9 This is a 2.3% increase in comparison to prior exam which is notstatistically significant. LEFT HIP: Total BMD is 0.709 g/cm2 T-score is -1.9 This is a 0.5% increase in comparison to prior exam which is notstatistically significant. Femoral neck BMD is 0.586 g/cm2 T-score is -2.4 FRAX: 10 year risk for a major osteoporotic fracture is 12 %, 10 year risk for ahip fracture is 3 % IMPRESSION: Low bone mass REFERENCE: Bone mineral density: Normal (T-score above or = -1.0) Low bone mass (T-score between -1.0 and -2.5) replaces thepreviously used term osteopenia Osteoporosis (T-score = or below -2.5) Medical evaluation for secondary causes of low bone mineral density may be appropriate. FRAX is a World Health Organization validated fracture risk assessmenttool that calculates a person's 10 year probability of a major osteoporosisrelated fracture and hip fracture. According to the National OsteoporosisFoundation guidelines, postmenopausal women and men age 50 or older with low bonemass and a 10 year probability of a major osteoporosis related fracture = or greater than 20% or a 10 year probability of a hip fracture = or greaterthan 3% should be considered for treatment. For further information, including treatment recommendations, please referto the 2013 ISCD Official Positions (http://www.iscd.org) and the NOF's Clinician's Guide to Prevention and Treatment of Osteoporosis (http://www.nof.org/professionals/clinical-guidelines) THIS IS AN ELECTRONICALLY VERIFIED FINAL REPORT 11/04/2022 5:12 PM - Electronically signed by Jenny Pineda M.D. TW: TW Report ID: [id number] Reading Location: [place] [address] Eulalia Pereira MD IMG DXA PROCEDURES Final Result * DIABETES EYE EXAM (05/01/2021) Historical Provider HEALTH MAINTENANCE Final Result from Last 3 Months or Most Recently Relevant to Health Maintenance Additional Health Concerns Infection Onset Date Last Indicated MDR gram neg/ESBL Comment:Patients who received care at a healthcare facility outside of the [place] will be placed in Contact Precautions until infection or colonization with specific highly resistant bacteria can be ruled out. Infection Prevention will arrange screening. Please contact Infection Prevention. 06/24/2022 06/24/2022 Insurance MEDICARE [facility] MEDICARE [facility] MEDICARE [facility] Address: [address] [address] [place] [address] [facility] [employer] Advance Directives For more information, please contact: [phone] * Full Code (Latest Code Status on File) Date Activated Date Inactivated Comments 12/06/2024 2:09 PM 12/07/2024 4:52 PM Care Teams Director Of Curriculum And Instruction Relationship Specialty Start Date End Date Eulalia Pereira MD [address] [place], [place] [id number] PCP - General Family Medicine 09/29/18 Horacio Luis MD [address] [place] [id number] Consulting Physician General Surgery 12/07/24
--- OUTSIDE RECORDS SUMMARY | 2025-04-08 13:48 | XMS_ITS | Encounter Summary ---
Author Organization [facility] Address [address] [place] [address] Care Team Providers Care Managing Jeweler Name Role Phone Eulalia Pereira MD Primary Care Provi ursula Horacio Luis MD Unavailable [phone] Reason for Visit * Reason Onset Date Comments Medical Question/Miscellaneous 03/22/2025 Encounter Details Date Type Department Care Team (Late st Contact Info) Description 03/22/[address] [facility] Family Medicine [address] [phone] Eulalia Pereira MD [address] [address] Medical Question/Miscellaneous Social History Tobacco Use Types Packs/Day Years Used Date Smoking Tobacco: Never Smokeless Tobacco: Never Alcohol Use Standard Drinks/Week Comments Yes 1 (1 standard drink = 0.6 oz pur e alcohol) [facility] Utilities Answer Date Recorded In the past 12 months has [employer], gas, oil, or water company threatened [...] often do you attend chur ch or samaritan services? Never 12/07/2024 Do you belong to any clubs o r organizations such as yazidism groups, unions, fraternal or athletic groups, or [...] any time in the past 12 m [facility], were you homeless or living in a fpc (including now)? No 12/07/2024 Personal Safety Answer Date Recorded Have you ever been in or are you currently in a harmful physical or emotional relationship or is someone making you feel afraid or unsafe? Denies 12/06/2024 Comments No Sex and Gender Information Value Date Recorded Sex Assigned at Not on file Legal Sex Female 12:35 AM BIT GRINDER Gender Identity Not on file Sexual Orientation Not on file documented as of this encounter Miscellaneous Notes * Telephone Encounter - Chely Rodriguez - 03/25/2025 8:57 AM CDT Records faxed for review and scheduling. * Telephone Encounter - Chely Rodriguez - 03/22/2025 3:22 PM CDT Referral has not been faxed yet will get it faxed over this afternoon. * Telephone Encounter - Tere Sutton - 03/22/2025 3:08 PM CDT Medical Question/Miscellaneous Caller???s Concern: Patient called stating she called the engineering program analyst Dr. Guerra's office and they told her they didn't have a referral. I advised her that it had been sent. Can it be sent again. Does message need to be routed? Yes-Action [...] documented as of this encounter Care Teams Managing Jeweler Relationship Specialty Start Date End Date Eulalia Pereira MD [address] [place] [address] PCP - General Family Medicine 09/29/18 Horacio Luis MD [address] [place] [id number] Consulting Physician General Surgery 12/07/24 documented as of this encounter
--- OUTSIDE RECORDS SUMMARY | 2025-04-08 13:48 | XMS_ITS | Encounter Summary ---
Author Organization [facility] Facility Care Team Providers Care Cashier Or Checker Stock Clerk Name Role Phone Eulalia Pereira MD Primary Care Provi ursula Myra Roblero CDE Unavailable Horacio Luis MD Unavailable Jordyn Lewis LPN Unavailable Encounter Details Date Type Department Care Team (Latest Contact Info) Description 12/05/2015 Orders Only [facility]INCONV Provider, MD Amber [address] [place] [id number] Social History Tobacco Use Types Packs/Day Years Used Date Smoking Tobacco: Never Assessed Comments Unknown Sex and Gender Information Value Date Recorded Sex Assigned at Not on file Legal Sex Female 12:35 AM CERTIFIED PHARMACY TECHNICIAN Gender Identity Not on file Sexual Orientation Not on file documented as of this encounter Plan of Treatment Not on file documented as of this encounter Procedures Procedure Name Priority Date/Time Associated Diagnosis Comments SCAN - LABS 12/05/2015 12:00 AM CDT documented in this encounter Results * SCAN - LABS (12/05/2015 12:00 AM CDT) Narrative 12/05/2015 12:00 AM CDT Ordered by an unspecified [...] COVID: Suspected 06/24/2022 06/24/2022 06/24/2022 11:52 AM CERTIFIED PHARMACY TECHNICIAN COVID19 06/24/2022 06/24/2022 07/04/2022 3:05 AM CERTIFIED PHARMACY TECHNICIAN COVID: Recovered Comment:Added based on recent COVID infection. 07/04/2022 07/28/2022 10/02/2022 3:05 AM C DT COVID: Suspected 09/15/2023 09/15/2023 09/15/2023 5:46 AM CERTIFIED PHARMACY TECHNICIAN documented as of this encounter Care Teams Cashier Or Checker Stock Clerk Relationship Specialty Start Date End Date Eulalia Pereira MD [address] [place] [address] PCP - General Family Medicine 09/29/18 Myra Roblero CDE [address] [place] [address] Personal Driver 01/24/23 08/10/23 Horacio Luis MD [address] [place] [id number] Consulting Physician General Surgery 12/07/24 Jordyn Lewis LPN [address] [place] [address] Link Machine Operator 12/10/24 12/10/24 documented as of this encounter
[2025-04-08 13:56] LABS: EDCOVIDSCREEN Negative (Negative)
--- NOTE | 2025-04-08 14:08 | ED_ITS ---
HPI - URI/Sore Throat General Chief Complaint: Upper Respiratory Infection Stated Complaint: Cough Time Seen by Provider: 04/08/25 13:25 Source: patient Mode of arrival: ambulatory Limitations: no limitations History of Present Illness HPI Narrative: 74 yo F presents with c/o deep cough for 5 days. Afebrile. No CP or SOB. On recent trip out of country. States multiple people she went with now telling her they have pneumonia. all systems reviewed and negative except as noted above. Related Data Home Medications ?Medication ?Instructions ?Recorded ?Confirmed ?Last Taken ?Type blood sugar diagnostic (FreeStyle 10/19/23 10/19/23 U nknown History Lite Strips) glimepiride 2 mg tablet 2 mg PO DAILY 10/19/2310/18 Unknown History losartan 25 mg tablet 25 mg PO DAILY 10/19/2310/09 Unknown History meclizine 12.5 mg tablet 12.5 mg PO PRN PRN Vertigo 0 10/19/23 10/19/23 Unknown History metformin 750 mg tablet,extended 750 mg PO BID 4 10/19/23 Unknown History release 24 hr rosuvastatin 5 mg tablet 5 mg PO DAILY 10/19/2310/18 Unknown History sitagliptin phosphate 100 mg 100 mg PO DAILY 10/19/23 10/19/23 Unknown History tablet (Januvia) ursodiol 250 mg tablet 250 mg PO BID 10/19/2310/18 Unknown History Allergies Allergy/AdvReac Type Severity Reaction Status Date / Time No Known Allergies Allergy Verified 04/08/25 13:25 [facility] Past Medical History Medical History (Updated 04/08/25 @ 14:05 by Anat Beard NP) Vertigo Diabetes Comments At time of signature, agree with nursing past medical, surgical, social and family history. There is no relevant family history pertinent to the presenting complaint. Exam Narrative: GENERAL: This is a well-nourished, well-developed patient, in no apparent distress. HEAD: normocephalic, atraumatic. EYES: PERRL. Sclera clear/white. Vision is grossly intact. EARS: External ears normal, auditory canals clear and without drainage, TMs normal without perforation. Hearing grossly intact. NOSE: External nose normal with no obvious nasal discharge, nares without redness, no rhinorrhea. THROAT: Mucous membranes moist, posterior pharynx clear. NECK: Neck supple, non-tender without lymphadenopathy, masses or thyromegaly. CARDIOVASCULAR: Regular rate and rhythm without murmurs, gallops, or rubs. RESPIRATORY: Clear to auscultation. Breath sounds equal bilaterally. No wheezes, rales, or rhonchi. SKIN: warm, Dry, intact with no suspicious lesions or rash, good texture and turgor. NEURO: awake, alert, and oriented to person, place and time. There were no obvious focal neurologic abnormalities. EXTREMITIES: No joint tenderness, effusion, or edema noted. Course Course Level of Care: Express Care Visit Vital Signs Vital signs: Vital Signs Temperature 36.4 C L 04/08/25 13:31 Pulse Rate 81 04/08/25 13:31 Respiratory Rate 16 04/08/25 13:31 Blood Pressure 148/63 H 04/08/25 13:31 Pulse Oximetry 100 04/08/25 13:31 Temperature 36.4 C L 04/08/25 13:31 Pulse Rate 81 04/08/25 13:31 Respiratory Rate 16 04/08/25 13:31 Blood Pressure 148/63 H 04/08/25 13:31 Pulse Oximetry 100 04/08/25 13:31 Reviewed MDM - URI/Sore Throat MDM Narrative Medical decision making narrative: chest x-ray negative for pneumonia. Negative COVID test. Lungs clear to auscultation. Patient is well-appearing, nontoxic. Differential Diagnosis Differential diagnosis: Likely upper respiratory infection, sinusitis, viral infection and bronchitis Lab Data Labs: Lab Results 04/08/25 Range/Units 13:54 POC SARS CoV-2 Ag Negative (Negative) Imaging Data My impression: Agree with radiologist Radiologist's impression: EXAMINATION: XR chest 2V, 04/08/2025 13:49 CDT HISTORY: cough x 5 days, pneumonia exposure COMPARISON: No comparisons available. Technique: 2 views obtained. Findings: The lungs are clear, no effusion. No pneumothorax. Heart is normal size. Mediastinal and hilar contours are within normal limits. Bony thorax no acute abnormality. Impression: No acute cardiopulmonary abnormality. Discharge Plan Discharge Clinical Impression: Viral upper respiratory tract infection with cough Patient Disposition: Home Condition: Stable Instructions: Acute Bronchitis (ED) Additional Instructions: Your chest x-ray was normal today. Your COVID test was negative today. Your symptoms are viral and may last 10-14 days. Take medications as prescribed. Drink at least 64 oz water a day. See your doctor if symptoms are not improving. Patient Language: Greenlandic Prescriptions: New benzonatate 200 mg capsule 200 mg PO TID PRN (Reason: cough) Qty: 20 0RF methylprednisolone [Medrol ([place])] 4 mg tablets,dose pack See Rx Instructions PO .COMPLEX Qty: 21 0RF Rx Instructions: orally per package directions No Action meclizine 12.5 mg tablet 12.5 mg PO PRN PRN (Reason: Vertigo) (DME) FreeStyle Lite Strips Strip MISCELLANEOUS glimepiride 2 mg tablet 2 mg PO DAILY ursodiol 250 mg tablet 250 mg PO BID losartan 25 mg tablet 25 mg PO DAILY metformin 750 mg tablet extended release 24 hr 750 mg PO BID rosuvastatin 5 mg tablet 5 mg PO DAILY Januvia 100 mg tablet 100 mg PO DAILY ciprofloxacin HCl 0.2 % dropperette 0.25 ml RIGHT EAR Q12H 7 Days Qty: 14 0RF Follow-up/Referrals: Randall,MD Eulalia [Primary Care Provider, Unknown] Time of Disposition: 14:03
== END 2025-04-08 14:07 | disposition home or self-care (01) ==
PROVIDERS: Emergency Provider Nurse Practitioner Family; PCP Family Medicine
DX: J06.9 Acute upper respiratory infection, unspecified (principal); R05.9 Cough, unspecified; Z20.822 Contact with and (suspected) exposure to COVID-19; E11.9 Type 2 diabetes mellitus without complications; Z79.84 Long term (current) use of oral hypoglycemic drugs
CPT/HCPCS: 71046; 87426; 99213; G0463